=== PATIENT | male | born 1950 | race Caucasian/White ===

== ENCOUNTER 2021-09-14 03:05 | Day surgery (SDC) | payer MEDICARE, SELFPAY ==
[2021-08-31 08:40] VITALS: BMI 36.0
--- NOTE | 2021-09-14 08:26 | WPDANESEPPF ---
Anes - Initial Pre Proc Eval Procedure: Operation Date: 09/14/21 10:00 Proposed Procedures p Screening Colonoscopy - Jovanny Booker MD Date/Time: 09/14/21 08:26 Surgeon: Jovanny Booker MD Pre Op Diagnosis: hx of colon polyps Patient Data Age: 71 Gender: M Height: 1.78 m Weight: 114 kg Allergies Allergy/AdvReac Type Severity Reaction Status Date / Time No Known Allergies Allergy Verified 09/14/21 08:41 Home Medications Medication Instructions Recorded Confirmed Type allopurinol 300 mg PO DAILY 08/31/21 08/31/21 History aspirin [Adult Low Dose Aspirin] 81 mg PO DAILY 08/31/21 08/31/21 History atorvastatin 40 mg PO DAILY 08/31/21 08/31/21 History fenofibrate 40 mg PO DAILY 08/31/21 08/31/21 History furosemide 40 mg PO DAILY 08/31/21 08/31/21 History glucos sul [id number]-ybi-zbukb-C-Mn 1 cap PO DAILY 08/31/21 08/31/21 History [Glucosamine Chondroitin] hydrochlorothiazide 25 mg PO DAILY 08/31/21 08/31/21 History magnesium 500 mg PO DAILY 08/31/21 08/31/21 History metformin 1,000 mg PO BID 08/31/21 08/31/21 History multivit with min-folic acid 1 tablet PO DAILY 08/31/21 08/31/21 History [Adult One Daily Multivitamin] potassium chloride [Klor-Con M10] 10 meq PO DAILY 08/31/21 08/31/21 History Patient hx anesthesia problems: none Family hx anesthesia problems: none Results Review: All pre-operative results and documents have been reviewed as part of the pre-operative evaluation. [facility] Past Medical History Medical History (Updated 09/11/21 @ 12:13 by Duane Taylor DO) Asthma Diabetes type 2, controlled Hyperlipidemia Hypertension Social History Social History Smoking status: Never smoker Alcohol use details: 1-2 drinks monthly Living arrangements: with family Spiritual care concerns: No Anes - Eval Final PreProcedure Day of Procedure 09/14/21 08:26 Patient weight: obese Heart: regular rate and rhythm Lungs: clear to auscultation and normal air movement Airway: Mallampati scale class III Neurological: alert and oriented Last oral intake: >/= 8 hours ASA classification: III Emergent: no Anesthetic plan: proceed Anesthesia type and monitoring: general GIVS and standard monitoring Results Review: All pre-operative results and documents have been reviewed as part of the pre-operative evaluation. Informed Consent: The patient's anesthetic plan and its attendant risks and benefits were discussed with the patient/family/POA. Questions were solicited and answers provided to the satisfaction of the patient/family/POA.
[2021-09-14 08:42] VITALS: BP 170/92; PULSE 83; RESP 18; TEMP 36.8; O2SAT 98; BMI 36.1
--- NOTE | 2021-09-14 08:54 | P.CONGI_ITS ---
Assessment and Plan Assessment and plan (1) History of colon polyps: Code(s): Z86.010 - Personal history of colonic polyps Status: Acute Assessment and Plan: Patient has a prior history of colon polyps. Presents today for screening colonoscopy. Further recommendations will be given after endoscopy. (2) Umbilical hernia: Code(s): K42.9 - Umbilical hernia without obstruction or gangrene Status: Acute Assessment and Plan: Patient with reducible umbilical hernia. May wish to consider surgical intervention. He will discuss with primary care service further GI Consult Note Consult date/time: 09/14/21 08:54 HPI: Vipul Meredith is a 71 year old male Presents for screening colonoscopy. Patient's current weight appetite bowel movements are normal. He denies abdominal pain. He has had no bleeding. Family history is noncontributory. Patient's last colonoscopy was 6 or 7 years ago. Review of Systems Review of Systems: All systems reviewed & are unremarkable except as noted in HPI and below PMFSH Past Medical History Medical History (Updated 09/14/21 @ 08:56 by Jovanny Booker MD) Asthma Diabetes type 2, controlled Hyperlipidemia Hypertension Social History Social History Smoking status: Never smoker Alcohol use details: 1-2 drinks monthly Living arrangements: with family Spiritual care concerns: No Meds Home Medications and Allergies Home Medications Medication Instructions Recorded Confirmed Type allopurinol 300 mg PO DAILY 08/31/21 09/14/21 History aspirin [Adult Low Dose Aspirin] 81 mg PO DAILY 08/31/21 09/14/21 History atorvastatin 40 mg PO DAILY 08/31/21 09/14/21 History fenofibrate 40 mg PO DAILY 08/31/21 09/14/21 History furosemide 40 mg PO DAILY 08/31/21 09/14/21 History glucos sul 6EFx-myf-fdegv-C-Mn 1 cap PO DAILY 08/31/21 09/14/21 History [Glucosamine Chondroitin] hydrochlorothiazide 25 mg PO DAILY 08/31/21 09/14/21 History magnesium 500 mg PO DAILY 08/31/21 09/14/21 History metformin 1,000 mg PO BID 08/31/21 09/14/21 History multivit with min-folic acid 1 tablet PO DAILY 08/31/21 09/14/21 History [Adult One Daily Multivitamin] potassium chloride [Klor-Con M10] 10 meq PO DAILY 08/31/21 09/14/21 History Allergies Allergy/AdvReac Type Severity Reaction Status Date / Time No Known Allergies Allergy Verified 09/14/21 08:41 Vital Signs Vital Signs - 24 hr 09/14/21 08:42 Temperature 98.3 F Pulse Rate 83 Respiratory Rate 18 Blood Pressure 170/92 H Pulse Oximetry 98 Exam Narrative: Physical exam reveals patient be alert. Vital signs stable. HEENT exam is unremarkable. Patient is anicteric. Lungs are clear to auscultation and percussion. Heart is without murmur or extra sounds. Abdomi nal exam is somewhat obese. Bowel sounds are present soft nontender moderate size reducible umbilical hernia is evident. Digital rectal exam is normal.
[2021-09-14 08:56] LABS: Glucose Point of Care 106 mg/dl (65-105)
[2021-09-14] MEDS: LACTATED RINGERS 1,000 ML 150 ML IV CONT (09:04)
[2021-09-14 09:22] VITALS: BP 85/44; PULSE 72; RESP 23; O2SAT 96
[2021-09-14 09:32] VITALS: BP 97/59; PULSE 74; RESP 20; O2SAT 97
[2021-09-14 09:42] VITALS: BP 128/87; PULSE 74; RESP 23; O2SAT 98
== END 2021-09-14 09:51 | disposition home or self-care (01) ==
PROVIDERS: PCP Family Medicine Adolescent Medicine; Visit Provider Internal Medicine Gastroenterology
PROC: 0DJD8ZZ Inspection of Lower Intestinal Tract, Via Natural or Artificial Opening Endoscopic (ICD-10-PCS; CPT 45378; principal; 2021-09-14 10:00)
DX: Z12.11 Encounter for screening for malignant neoplasm of colon (principal); D12.2 Benign neoplasm of ascending colon; K42.9 Umbilical hernia without obstruction or gangrene; J45.909 Unspecified asthma, uncomplicated; E11.9 Type 2 diabetes mellitus without complications; E78.5 Hyperlipidemia, unspecified; I10 Essential (primary) hypertension; Z79.82 Long term (current) use of aspirin; Z79.84 Long term (current) use of oral hypoglycemic drugs; E66.9 Obesity, unspecified; Z68.36 Body mass index [BMI] 36.0-36.9, adult
CPT/HCPCS: 45385; 82948; 88305; J2704; J7120

== ENCOUNTER 2022-09-14 07:42 | Outpatient (CLI) | payer MEDICARE, SELFPAY ==
--- NOTE | 2022-09-14 08:47 | ECG_ITS ---
Measurements Intervals [place] Rate: 96 P: 28 DC: 219 QRS: -71 QRSD: 154 T: 74 QT: 389 QTc: 494 Interpretive Statements SINUS RHYTHM WITH FIRST DEGREE AV BLOCK RIGHT BUNDLE BRANCH BLOCK LEFT ANTERIOR FASCICULAR BLOCK MINIMAL Q WAVES- HIGH LATERAL LEADS BASELINE ARTIFACT- I, II, III, AVR, AVL, V3 ABNORMAL ECG NO PREVIOUS ECG AVAILABLE FOR COMPARISON Electronically Signed On 09-14-2022 10:22:48 COMPUTER TEACHER by Abran Ivan D.O.
[2022-09-14 09:32] LABS: Urine Cotinine NEGATIVE
== END 2022-09-14 07:43 | disposition home or self-care (01) ==
LOC: ANHSURGERY 07:45
PROVIDERS: PCP Family Medicine Adolescent Medicine; Visit Provider Orthopaedic Surgery
DX: M17.11 Unilateral primary osteoarthritis, right knee (principal); Z01.818 Encounter for other preprocedural examination; I44.4 Left anterior fascicular block; I44.0 Atrioventricular block, first degree; I45.10 Unspecified right bundle-branch block
CPT/HCPCS: 80307; 86850; 86900; 86901; 87081; 93005

== ENCOUNTER 2022-09-27 01:08 | Day surgery (SDC) | payer MEDICARE, SELFPAY ==
[2022-09-14 07:51] VITALS: BMI 36.1
[2022-09-14 08:03] VITALS: BP 169/102; PULSE 97; RESP 16; TEMP 37.2; O2SAT 96
--- NOTE | 2022-09-14 08:21 | PC.NURSE ---
Report to the Outpatient Waiting Room, entrance under the green pavilion located off [facility], at time __6:00AM on date __09/27/22 . Planned Procedure Time: __7:30AM . Time changes happen often and if your time is changed the preop area will call you the afternoon before. - You and your visitor will be asked to self-screen and do not enter if you have any COVID symptoms. - Only one visitor is requested with a max of two and NO children visitors are allowed at this time. - The patient visitor may be requested to leave or wait in car when not with patient due to distancing restrictions. - A mask is optional within the hospital. Patients may have clear liquids (water, carbonated beverages, clear teas, apple juice) until 3 hours prior to surgery with a maximum of 20 ounces. - No food from midnight until time of surgery Take the following medications with a SIP of water the morning of surgery: ___NONE Medications to discontinue per physician HOLD ALL VITAMINS/SUPPLEMENTS 3 DAYS PRE-OP Date to take last dose 09/23/22 Please no make-up, nail czech, hairspray, perfume, deodorant, or body powder the day of surgery. No jewelry (including any body piercings) or valuables the day of surgery, leave them at home. Please take a shower or bath the night before, or the morning of, surgery with an antibacterial soap. Wear comfortable, loose fitting clothing. Children are encouraged to wear pajamas. - Jewelry must be removed prior to entering the operating room. Rings and piercings that are not removed may be cut off. - The hospital will not accept responsibility for valuables. - Please leave all valuables, including medications, at home the day of surgery. If you are going home after surgery, a licensed bus driver supervisor must drive you home. - NO public transportation without another adult if you receive anesthesia. - We recommend that an adult stay with you for 24 hours following discharge. - We also recommend that you do not drive, make important decision, drink alcoholic beverages, or take any drugs that were not prescribed by your health care provider for at least 24 hours after your discharge time. Follow any additional instructions given to you from your surgeon. If you or anyone in your household have experienced Covid symptoms in the past week, please notify your surgeon or the nurse liaison at the phone number below for possible testing. Telephone instructions given to __PATIENT & WIFE__and asked if any additional questions and then verbalized understanding. Patient advised to call surgeon office or pre surgery nurse liaison [phone] if any additional questions.
[2022-09-27 07:43] VITALS: BP 163/101; PULSE 91; RESP 18; TEMP 37.1; O2SAT 98
[2022-09-27] MEDS: LACTATED RINGERS 1,000 ML 30 ML IV CONT (07:50)
--- NOTE | 2022-09-27 08:09 | WPDANESEPPF ---
Anes - Initial Pre Proc Eval Procedure: Operation Date: 09/27/22 10:30 Proposed Procedures p Right Total Knee Arthroplasty - Jerson Cartagena MD Date/Time: 09/27/22 08:09 Surgeon: Jerson Cartagena MD Pre Op Diagnosis: OA right knee Patient Data Age: 72 Gender: M Height: 1.8 m Weight: 117.6 kg Last Vital Signs Temp 37.1 C 09/27/22 07:43 Pulse 91 09/27/22 07:43 Resp 18 09/27/22 07:43 BP 163/101 H 09/27/22 07:43 Pulse Ox 98 09/27/22 07:43 O2 Del Method Room Air 09/27/22 07:43 Allergies Allergy/AdvReac Type Severity Reaction Status Date / Time rye flower Allergy Intermediate Swelling Uncoded 09/27/22 07:35 Home Medications Medication Instructions Recorded Confirmed Type aspirin 81 mg tablet 81 mg PO DAILY 08/31/21 09/27/22 History glucosamine sulf dipot 1 cap PO DAILY 08/31/21 09/27/22 History chlr,msm,chond 550 mg-C 30 mg-kasey 1 mg capsule (Glucosamine Chondroitin) magnesium 500 mg tablet 500 mg PO DAILY 08/31/21 09/27/22 History multivitamin with minerals-folic 1 tablet PO DAILY 08/31/21 09/27/22 History acid 0.4 mg tablet metformin 500 mg tablet 1,000 mg PO BID #120 tabs 02/03/22 09/27/22 Rx atorvastatin 40 mg tablet 40 mg PO DAILY #90 tabs 05/31/22 09/27/22 Rx allopurinol 300 mg tablet 300 mg PO DAILY #90 tabs 06/18/22 09/27/22 Rx potassium chloride 10 mEq 10 meq PO DAILY #90 tabs 06/28/22 09/27/22 Rx tablet,extended release (Klor-Con) acetaminophen 500 mg capsule 1,500 mg PO Q6H PRN Pain 09/14/22 09/27/22 History furosemide 40 mg tablet 40 mg PO QAM 09/14/22 09/27/22 History cakgejvmyxc-hbzcnitjm-mzt C-Mn 500 1 cap PO DAILY 09/14/22 09/27/22 History mg-400 mg capsule hydrochlorothiazide 25 mg tablet 25 mg PO QAM 09/14/22 09/27/22 History irbesartan 150 mg tablet 150 mg PO HS 09/14/22 09/27/22 History lactobacillus combination no.4 3 3,000 mmu cells PO DAILY 09/14/22 09/27/22 History billion cell capsule (Probiotic) omega-3 fatty acids 2,500 mg PO DAILY 09/14/22 09/27/22 History vitamin B complex 1 tablet PO DAILY 09/14/22 09/27/22 History mupirocin 2 % topical ointment 1 applic topical BID #22 grams 09/16/22 09/22/22 Rx rivaroxaban 10 mg tablet (Xarelto) 10 mg PO DAILY PE prophylaxis s/p 09/16/22 09/22/22 Rx surgery 14 days #14 tabs ECG: Date of Service: 09/14/22 Procedure(s): CA 12 lead EKG Accession Number(s): [id number] cc: ~ ? Measurements Intervals? [place]? Rate: ? 96 ? P:? 28 MN: ? 219? QRS:? -71 QRSD: ? 154? T:? 74 QT: ? 389? QTc:? 494? Interpretive Statements SINUS RHYTHM WITH FIRST DEGREE AV BLOCK RIGHT BUNDLE BRANCH BLOCK LEFT ANTERIOR FASCICULAR BLOCK MINIMAL Q WAVES- HIGH LATERAL LEADS BASELINE ARTIFACT- I, II, III, AVR, AVL, V3 ABNORMAL ECG NO PREVIOUS ECG AVAILABLE FOR COMPARISON Electronically Signed On 09-14-2022 10:22:48 STRAINER CLEANER by Abran Ivan D.O. Other studies: echo 09/27: ef 59%, concentric lvh, grade 1 diastolic dysfunction. Moderate aortic stenosis, valve area 1.37 cm2 Patient hx anesthesia problems: none Family hx anesthesia problems: none Results Review: All pre-operative results and documents have been reviewed as part of the pre-operative evaluation. [facility] Past Medical History Medical History (Updated 09/27/22 @ 08:12 by Rigoberto Daley MD) Aortic stenosis (09/2022) Moderate aortic stenosis, valve area 1.37 cm2 Asthma Bilateral primary osteoarthritis of knee CVA (cerebral vascular accident) Diabetes type 2, controlled History of colon polyps History of retinal vein occlusion Hyperlipidemia Hypertension Obesity Osteoarthritis of knees, bilateral Family History Family History (Reviewed 09/16/22 @ 09:11 by Jerson Cartagena,
[2022-09-27] MEDS: ACETAMINOPHEN 500 MG TABLET 1000 MG PO (08:38)
--- NOTE | 2022-09-27 08:58 | WPDANESPNB ---
Anes - Peripheral Nerve Block Date/Time: 09/27/22 08:58 I have discussed with the patient/family/POA the placement of a peripheral nerve block for post-operative pain management, including associated risks, benefits, complications, and side effects. Alternative methods of post-operative analgesia were detailed. Questions were solicited and answers provided to the satisfaction of the patient/family/POA. Time-Out: A pre-procedural Time-Out was completed immediately before starting the procedure and confirmed: Patient Identification, Site, Procedure, Patient Position and the Availability of Requisite Equipment. Clinical Indications: Acute post-operative pain management requested by the operative surgeon. Nerve Block Insertion Note Needle: 22 gauge, stimulating, insulated echogenic needle.
[2022-09-27 09:30] VITALS: BP 182/111; PULSE 84; RESP 18; O2SAT 98
--- NOTE | 2022-09-27 09:33 | WPDHPUPDATE1 ---
History and Physical Update Update Date/Time: 09/27/22 09:33 The patient and his misunderstood medication regimen. He has not taken any of his medications since last Tuesday and is now fluid overloaded with lower extremity edema and a markedly elevated blood pressure. After discussing with Anesthesia, we think it prudent to wait to get this situation back under control so he is going to be rescheduled. This was explained to him and his .
== END 2022-09-27 09:58 | disposition home or self-care (01) ==
PROVIDERS: PCP Family Medicine Adolescent Medicine; Visit Provider Orthopaedic Surgery
PROC: (CPT 27447; principal; 2022-09-27 10:30)
DX: M17.11 Unilateral primary osteoarthritis, right knee (principal); E87.70 Fluid overload, unspecified; I10 Essential (primary) hypertension; Z53.09 Procedure and treatment not carried out because of other contraindication
CPT/HCPCS: 80307; 86850; 86900; 86901; 87081; 93005; 99212; A9270; G0463; J0171; J2270; J2795; J3370; J7120

== ENCOUNTER 2022-10-01 08:21 | Outpatient (CLI) | payer MEDICARE, SELFPAY ==
[2022-10-01 08:54] LABS: Albumin Level 4.5 g/dL (3.5-5.1)
[2022-10-01 08:57] LABS: Anion Gap 5 mmol/L (8-16); Blood Urea Nitrogen 19 mg/dL (9-20); Calcium 9.7 mg/dL (8.4-10.2); Carbon Dioxide 32 mmol/L (22-30); Chloride 97 mmol/L (98-107); Estimated Glomerular Filt Rate > 60; Glucose 102 mg/dL (65-110); Potassium 4.7 mmol/L (3.4-5.0); Sodium 134 mmol/L (137-145)
== END 2022-10-01 08:22 | disposition home or self-care (01) ==
PROVIDERS: Anesthesiology; PCP Family Medicine Adolescent Medicine; Visit Provider Orthopaedic Surgery
DX: M17.11 Unilateral primary osteoarthritis, right knee (principal); E11.9 Type 2 diabetes mellitus without complications; Z01.818 Encounter for other preprocedural examination
CPT/HCPCS: 36415; 80048; 82040; 86850; 86900; 86901

== ENCOUNTER 2022-10-05 00:42 | Day surgery (SDC) | payer MEDICARE, SELFPAY ==
[2022-09-30 09:21] VITALS: BMI 36.6
--- NOTE | 2022-09-30 09:41 | PC.NURSE ---
Report to the Outpatient Waiting Room, entrance under the green pavilion located off [facility], at time __6:00AM on date ___10/05/22____. Planned Procedure Time: __9:00AM . PATIENT COMING 1 HOUR EARLIER THAN USUAL FOR VANCOMYCIN ADMINISTRATION. Time changes happen often and if your time is changed the preop area will call you the afternoon before. - You and your visitor will be asked to self-screen and do not enter if you have any COVID symptoms. - Only one visitor is requested with a max of two and NO children visitors are allowed at this time. - The patient visitor may be requested to leave or wait in car when not with patient due to distancing restrictions. - A mask is optional within the hospital at this time. Patients may have clear liquids (water, carbonated beverages, clear teas, apple juice) until 3 hours prior to surgery with a maximum of 20 ounces. - No food from midnight until time of surgery Take the following medications with a SIP of water the morning of surgery: __NONE DO NOT STOP ANY OF YOUR OTHER PRESCRIPTION MEDICATIONS PRIOR TO SURGERY ?EXCEPT THE FOLLOWING Medications to discontinue per physician ___HOLD ASPIRIN & FISH OIL STARTING 09/29/[address] DEGROOT/MATILDA (PER PATIENT), HOLD ALL OTHER VITAMINS/SUPPLEMENTS 3 DAYS PRE-OP PER ANESTHESIA(LAST DOSE 10/01/22) . Please no make-up, nail slovenian, hairspray, perfume, deodorant, or body powder the day of surgery. No jewelry (including any body piercings) or valuables the day of surgery, leave them at home. Please take a shower or bath the night before, or the morning of, surgery with an antibacterial soap. Wear comfortable, loose fitting clothing. Children are encouraged to wear pajamas. - Jewelry must be removed prior to entering the operating room. Rings and piercings that are not removed may be cut off. - The hospital will not accept responsibility for valuables. - Please leave all valuables, including medications, at home the day of surgery. If you are going home after surgery, a licensed driver supervisor must drive you home. - NO public transportation without another adult if you receive anesthesia. - We recommend that an adult stay with you for 24 hours following discharge. - We also recommend that you do not drive, make important decision, drink alcoholic beverages, or take any drugs that were not prescribed by your health care provider for at least 24 hours after your discharge time. Follow any additional instructions given to you from your surgeon. If you or anyone in your household have experienced Covid symptoms in the past week, please notify your surgeon or the nurse liaison at the phone number below for possible testing. Telephone instructions given to __PATIENT__and asked if any additional questions and then verbalized understanding. Patient advised to call surgeon office or pre surgery nurse liaison [phone] if any additional questions.
[2022-10-05] VITALS (17 sets, daily range): BP systolic 110–157; BP diastolic 66–87; PULSE 77–103; RESP 14–22; TEMP 36.4–36.8; O2SAT 92–100
--- NOTE | ~2022-10-05 | XR_ITS ---
EXAMINATION: XR knee RT 2V DATE: 10/05/2022 11:53 INDICATION: Right knee arthroplasty. Postop. TECHNIQUE: 2 views of right knee were obtained. COMPARISON: None. FINDINGS: There is a total right knee arthroplasty with resurfacing in near-anatomic alignment. No fr acture. There is a knee joint effusion. There is gas in the knee joint and soft tissues, consistent w ith recent surgery. Calcifications posterior to the knee may be loose bodies in a Corbin's cyst. IMPRESSION: 1. Total right knee arthroplasty in near-anatomic alignment. Reviewed, dictated and finalized at location A. P COLLECTOR
[2022-10-05] MEDS: LACTATED RINGERS 1,000 ML 30 ML IV CONT ×2 (06:30→11:35)
[2022-10-05] MEDS: ACETAMINOPHEN 500 MG TABLET 1000 MG PO (06:30)
[2022-10-05 06:54] LABS: Glucose Point of Care 112 mg/dl (65-105)
[2022-10-05] MEDS: TRANEXAMIC ACID 1,000MG/ISO100 1,000 MG/100 ML BAG 200 MG IVPB (07:00)
--- NOTE | 2022-10-05 07:20 | WPDHPUPDATE1 ---
History and Physical Update Update Date/Time: 10/05/22 07:20 History and Physical has been reviewed, including an updated exam of the patient. There are NO changes in the patient's condition. Risks, benefits, and alternatives have been discussed and questions answered. Patient agrees to proceed with procedure.
--- NOTE | 2022-10-05 08:18 | WPDANESEPPF ---
Anes - Initial Pre Proc Eval Procedure: Operation Date: 10/05/22 09:00 Proposed Procedures p Right Total Knee Arthroplasty - Jerson Cartagena MD Date/Time: 10/05/22 08:18 Surgeon: Jerson Cartagena MD Pre Op Diagnosis: oa right knee Patient Data Age: 72 Gender: M Height: 1.78 m Weight: 116 kg Allergies Allergy/AdvReac Type Severity Reaction Status Date / Time RYE FLOUR Allergy Wheezing Uncoded 10/05/22 07:39 Home Medications Medication Instructions Recorded Confirmed Type aspirin 81 mg tablet 81 mg PO DAILY 08/31/21 10/05/22 History glucosamine sulf dipot 1 cap PO DAILY 08/31/21 10/05/22 History chlr,msm,chond 550 mg-C 30 mg-kasey 1 mg capsule (Glucosamine Chondroitin) magnesium 500 mg tablet 500 mg PO DAILY 08/31/21 10/05/22 History multivitamin with minerals-folic 1 tablet PO DAILY 08/31/21 10/05/22 History acid 0.4 mg tablet metformin 500 mg tablet 1,000 mg PO BID #120 tabs 02/03/22 10/05/22 Rx atorvastatin 40 mg tablet 40 mg PO DAILY #90 tabs 05/31/22 10/05/22 Rx allopurinol 300 mg tablet 300 mg PO DAILY #90 tabs 06/18/22 10/05/22 Rx potassium chloride 10 mEq 10 meq PO DAILY #90 tabs 06/28/22 10/05/22 Rx tablet,extended release (Klor-Con) furosemide 40 mg tablet 40 mg PO QAM 09/14/22 10/05/22 History hydrochlorothiazide 25 mg tablet 25 mg PO QAM 09/14/22 10/05/22 History irbesartan 150 mg tablet 150 mg PO HS 09/14/22 10/05/22 History lactobacillus combination no.4 3 3,000 mmu cells PO DAILY 09/14/22 10/05/22 History billion cell capsule (Probiotic) omega-3 fatty acids 2,500 mg PO DAILY 09/14/22 10/05/22 History vitamin B complex 1 tablet PO DAILY 09/14/22 10/05/22 History acetaminophen 650 mg 650 mg PO Q8H PRN Pain 09/30/22 10/05/22 History tablet,extended release mupirocin 2 % topical ointment 1 ea topical DAILY 09/30/22 10/05/22 History Laboratory Tests 10/05/22 06:47 POC Capillary Glucose 112 mg/dl H mg/dl (65-105) Patient hx anesthesia problems: none Family hx anesthesia problems: none Results Review: All pre-operative results and documents have been reviewed as part of the pre-operative evaluation. [facility] Past Medical History Medical History (Updated 09/29/22 @ 13:40 by Santana Benitez MD) Aortic stenosis (09/2022) Moderate aortic stenosis, valve area 1.37 cm2 Asthma CVA (cerebral vascular accident) Diabetes type 2, controlled History of colon polyps History of retinal vein occlusion Hyperlipidemia Hypertension Obesity Osteoarthritis of knees, bilateral Family History Family History Father Acute myocardial infarction Mother Acute myocardial infarction Sibling Cerebrovascular accident CAD (coronary artery disease) Social History Social History Smoking status: Never smoker Alcohol intake: current Alcohol use details: 1-2 drinks monthly Substance use: never Substance use type: does not use Living arrangements: with family Additional living arrangements comments: Occupation/Education: occupation Additional occupation/education comments: [employer] Spiritual care concerns: No Anes - Eval Final PreProcedure Day of Procedure 10/05/22 08:18 Patient weight: obese Heart: regular rate and rhythm Lungs: clear to auscultation Airway: Mallampati scale class III Neurological: alert and oriented Last oral intake: >/= 8 hours ASA classification: III Emergent: no Anesthetic plan: proceed Anesthesia type and monitoring: general LMA and standard monitoring Results Review: All pre-operative results and documents have been reviewed as part of the pre-operative evaluation. Informed Consent: The patient's anesthetic plan and its attendant risks and benefits were discussed with the patient/family/POA. Questions were solicited and answers provided to the satisfaction of the patient/family/POA.
--- NOTE | 2022-10-05 08:49 | WPDANESPNB ---
Anes - Peripheral Nerve Block Date/Time: 10/05/22 08:49 I have discussed with the patient/family/POA the placement of a peripheral nerve block for post-operative pain management, including associated risks, benefits, complications, and side effects. Alternative methods of post-operative analgesia were detailed. Questions were solicited and answers provided to the satisfaction of the patient/family/POA. Time-Out: A pre-procedural Time-Out was completed immediately before starting the procedure and confirmed: Patient Identification, Site, Procedure, Patient Position and the Availability of Requisite Equipment. Clinical Indications: Acute post-operative pain management requested by the operative surgeon. Nerve Block Insertion Note Anes-nerve block: adductor canal right Patient position: supine Skin prep: chlorhexidine Needle: 22 gauge, stimulating, insulated echogenic needle. Needle length: 80 mm Technique: ultrasound Injectate: bupivacaine 0.5% with epi 5 mcg/ml (30cc - no epi) Observations: tolerated well Complications: none Procedure start time:: 843 Procedure end time:: 846
[2022-10-05] MEDS: ceFAZolin 2 GM/D5W 50 ML 2 GM/50 ML BAG IVPB ×2 (09:06→21:08)
--- NOTE | 2022-10-05 10:23 | SUR.OPER ---
cement mixed 10:23
[2022-10-05] MEDS: GENTAMICIN BONE CEMENT REFOBACIN 1 EACH TOPICAL (10:26)
[2022-10-05] MEDS: ceFAZolin SODIUM 1 GM VIAL IV PUSH (10:34)
--- NOTE | 2022-10-05 11:28 | W.PM.PROC2 ---
Procedure Note - Detailed Date of Procedure 10/05/22 Pre-op Diagnosis oa right knee Post-op Diagnosis Same Procedure Performed Right total knee replacement Surgeon Jerson Cartagena MD Meal Grinder Tender Leann Tao Anesthesia General and Regional Description of Procedure The patient was identified and proper site identified. In the preop holding area the anesthesia team performed a right-sided sub sartorial block after which the patient was taken to the operating room and transferred to the OR table positioning supine taking care to pad the torso and extremities. After general anesthetic induction and intubation a nonsterile tourniquet was placed high on the right thigh. The right lower extremity was prepped and draped in the usual sterile fashion. The extremity was exsanguinated and with the knee flexed tourniquet was inflated to 300 mmHg remaining up for approximately 56 minutes. An anterior midline incision was made and a modified medial parapatellar approach was used. Infra and suprapatellar fat pads were excised. Patella was resected leaving 16 mm thickness and prepared for the size 31 round three peg component. Using the intramedullary guide the distal femur was cut in the proper orientation for the size 67.5 femoral component. Using the extramedullary guide the tibia was cut perpendicular to the long axis protecting collateral ligaments and popliteal structures. It was sized to a 71. Flexion and extension gaps were balanced. Trial reduction was undertaken and the weight-bearing line was noted to passed through the center of the joint. Proximal tibia was drilled and punched in the proper orientation for the real component. Trial components were removed. The bone surfaces were washed with pulsatile lavage and dried. The real components were cemented simultaneously. The knee was held in extension and the patella held clamped until the cement had cured. Excess cement was removed from the joint. After trialing it was determined that the 14 mm insert gave full range of motion from 0-120 degrees of flexion and the patella tracked in the femoral groove with no lift-off. After final lavage the joint the real 14 insert was placed and secured with a locking bar. A Betadine and saline wash was placed into the wound and allowed to sit for approximately 3 minutes and then evacuated. Periarticular tissues were infiltrated with 60 cc of the arthroplasty solution. Surgicel powder was applied into the wound during the closure. The extensor mechanism was repaired with #2 Vicryl suture and 0 looped PDS suture. Subcu was reapproximated with 3-0 Monocryl and 3-0 Quill with tissue adhesive for the skin. A sterile dressing was applied. He tolerated the procedure well, was awakened and extubated, transferred to the bed and was taken to recovery area in stable condition. There were no known intraoperative complications. Perioperative antibiotics were administered. Estimated Blood Loss 300 Tourniquet Time 56 Drains No Packing No Pathology None sent Complications No immediate complications Condition Stable Disposition PACU [facility] Billing Surgery - Charge Forward: Surgery Billing ([id number])
[2022-10-05 11:50] LABS: Glucose Point of Care 144 mg/dl (65-105)
[2022-10-05] MEDS: fentaNYL CITRATE INJ (*CRX) 100 MCG/2 ML VIAL 25 MCG IV PUSH ×6 (12:39→14:34)
--- NOTE | 2022-10-05 13:31 | SUR.PHASEI ---
PT ARRIVED TO PREOP ROOM ON 2 L O2, 3/10 PAIN, AND GIVEN A MENU.
[2022-10-05] MEDS: oxyCODONE HCL (*CRX) 5 MG TAB IR PO (15:34)
[2022-10-05 17:24] LABS: Glucose Point of Care 204 mg/dl (65-105)
--- NOTE | 2022-10-05 17:55 | ADMGEN ---
This patient, Vipul Meredith, was admitted to Medical Room 347-. Patient/family oriented to hospital policies and general routines including ID bracelet, bed and alarms, visiting hours, pain management, procedures, bathroom and other care routines, personal items, smoking policy, room service/diet, and visiting hours. Information on how to activate the Rapid Response Team has been discussed. Patient/Family are encouraged to report perceived risks to care and to ask questions if they do not understand what they are told or what they should do.
[2022-10-05] MEDS: oxyCODONE/ACETAMINOPHEN (*CRX) 5-325 MG TABLET 1 TABLET PO ×2 (19:53→23:57)
[2022-10-05] MEDS: SENNA/DOCUSATE SODIUM TABLET 2 TAB PO (19:53)
[2022-10-05] MEDS: IRBESARTAN 150 MG TABLET PO (19:54)
[2022-10-05] MEDS: FAMOTIDINE 20 MG TABLET PO (19:54)
[2022-10-05 21:06] LABS: Glucose Point of Care 153 mg/dl (65-105)
[2022-10-06 01:15] VITALS: BP 117/66; PULSE 96; RESP 18; TEMP 36.6; O2SAT 96
[2022-10-06] MEDS: ceFAZolin 2 GM/D5W 50 ML 2 GM/50 ML BAG IVPB ×2 (04:00→13:14)
[2022-10-06] MEDS: oxyCODONE/ACETAMINOPHEN (*CRX) 5-325 MG TABLET 1 TABLET PO ×3 (04:00→13:13)
--- NOTE | 2022-10-06 04:52 | PM.IMCN ---
Assessment and Plan Assessment and plan (1) Status post total right knee replacement: Code(s): Z96.651 - Presence of right artificial knee joint Status: Acute Assessment and Plan: - post op care per ortho - dvt prophylaxis per ortho - xarelto (2) CVA (cerebral vascular accident): Code(s): I63.9 - Cerebral infarction, unspecified Status: Acute Assessment and Plan: - chronic visual changes to right eye (3) Type 2 diabetes mellitus without complications: Code(s): E11.9 - Type 2 diabetes mellitus without complications Status: Acute Assessment and Plan: accucheck ac/hs with ss insulin and hypoglycemic protocol (4) Mixed hyperlipidemia: Code(s): E78.2 - Mixed hyperlipidemia Status: Acute Assessment and Plan: -on atorvastatin (5) Hypertension: Code(s): I10 - Essential (primary) hypertension Status: Acute Assessment and Plan: continue with lasix - continue with htcz and monitor bmp - continue with avapro (6) Umbilical hernia: Code(s): K42.9 - Umbilical hernia without obstruction or gangrene Status: Acute Assessment and Plan: soft and reducable Plan thank for the consult HPI Data of Consult Consult date: 10/05/22 Requesting Physician: Jerson Cartagena MD Primary Care Provider: Santana Benitez MD Consult Narrative Narrative: Vipul Meredith is a 72 year old male who is a fairly healthy adult who underwent a right total knee arthroplasty after attempting conservative measures. she operative report. he has a hx of htn and dm. the hospitalist group was asked to consult for medical mangaement on 10/05/22 Review of Systems Review of Systems: see hpi All systems reviewed & are unremarkable except as noted in HPI and below Constitutional: Constitutional: Reports as per HPI and Reports no additional constitutional complaints Eyes: Eyes: Reports as per HPI and Reports no additional eye complaints ENT: Reports system reviewed and no additional complaints, except as documented and Reports Normal hearing present Cardiovascular: Cardiovascular: Reports no additional cardiovascular complaints Respiratory: Respiratory: Reports no additional respiratory complaints and Reports no additional respiratory complaints Gastrointestinal: Gastrointestinal: Reports as per HPI and Reports no additional gastrointestinal complaints Musculoskeletal: Musculoskeletal: Reports no additional musculoskeletal complaints Integumentary/Breasts: Skin/Breast: Reports system reviewed and no additional complaints, except as docu and Reports as per HPI Neurologic: Reports system reviewed and no additional complaints, except as documented, Reports as per HPI and Reports Normal hearing present Psychiatric: Psychiatric: Reports no additional psychiatric complaints and Reports as per HPI Endocrine: Endocrine: Reports no additional endocrine complaints Hematologic/Lymphatic: Hematologic/Lymphatic: Reports no additional hematologic/lymphatic complaints Allergic/Immunologic: Allergic/Immunologic: Reports no additional allergic/immunologic complaints [facility] Past Medical History Medical History Aortic stenosis (09/2022) Moderate aortic stenosis, valve area 1.37 cm2 Asthma CVA (cerebral vascular accident) Diabetes type 2, controlled History of colon polyps History of retinal vein occlusion Hyperlipidemia Hypertension Obesity Osteoarthritis of knees, bilateral Surgical History Surgical History (Updated 10/06/22 @ 04:57 by Ashley Gonsalves NP) H/O colonoscopy with polypectomy H/O wisdom tooth extraction Status post total right knee replacement Family History Family History Father Acute myocardial infarction Mother Acute myocardial infarction Sibling Cerebrovascular accident CAD (coronary artery d
[2022-10-06 05:27] VITALS: BP 144/77; PULSE 87; RESP 18; TEMP 36.8; O2SAT 96
[2022-10-06 05:36] LABS: Basophils Absolute Auto 0.1 K/mm3 (0.0-0.1); Basophils Percent Auto 0.5 % (0.2-1.2); Eosinophils Absolute Auto 0.1 K/mm3 (0-0.3); Eosinophils Percent Auto 0.5 % (0-4.4); Hematocrit 40.1 % (42.0-52.0); Hemoglobin 13.2 g/dL (14.0-18.0); Immature Granulocyte Absolute 0.05 K/mm3 (0.00-0.031); Immature Granulocyte Percent A 0.4 % (0-0.5); Lymphocytes Absolute Auto 2.37 K/mm3 (0.9-3.2); Lymphocytes Percent Auto 17.6 % (18.3-44.2); Mean Corpuscular HGB Conc 32.9 g/dl (32-36); Mean Corpuscular Hemoglobin 30.7 pg (26-34); Mean Corpuscular Volume 93.3 fl (80-100); Monocytes Absolute Auto 1.5 K/mm3 (0.1-0.6); Monocytes Percent Auto 11.2 % (2.6-8.5); Neutrophils Absolute Auto 9.4 K/mm3 (1.3-6.7); Neutrophils Percent Auto 69.8 % (45.5-73.1); Platelet Count Result 196 k/mm3 (150-375); Red Cell Distribution Width 12.8 % (11.5-14.5); White Blood Count 13.5 K/mm3 (4.5-10.0)
[2022-10-06 05:48] LABS: Anion Gap 5 mmol/L (8-16); Blood Urea Nitrogen 18 mg/dL (9-20); Calcium 8.9 mg/dL (8.4-10.2); Carbon Dioxide 31 mmol/L (22-30); Chloride 97 mmol/L (98-107); Estimated CRCL calculation 91 ml/min; Estimated Glomerular Filt Rate > 60; Glucose 123 mg/dL (65-110); Magnesium 1.9 mg/dL (1.6-2.3); Sodium 133 mmol/L (137-145)
--- NOTE | 2022-10-06 08:42 | PM.DS ---
DS: Admitting Diagnosis Discharge Date 10/06/2022 Admitting Diagnosis Right knee osteoarthritis DS: Discharge Diagnosis Discharge Diagnosis (1) Status post total right knee replacement: Code(s): Z96.651 - Presence of right artificial knee joint Status: Acute Plan 72-year-old male postop day 1 after right total knee replacement with Dr. Cartagena. Overall doing very well this morning. Uneventful overnight stay. He is doing well with the current pain management regimen. He will be seen by therapy this morning prior to discharge. Postoperative wound care and medications were discussed with him. Plan follow-up in 2 weeks in the office for wound and range of motion check. He will call our office with any further questions or concerns prior to that scheduled follow-up. DS: Summary Hospital Course Reason for hospitalization: Observation after outpatient procedure Hospital Course: 72-year-old male admitted for observation after right total knee replacement. No immediate surgical complications. Hospitalist was consulted due to chronic conditions. Appreciate their input. Relatively uneventful overnight stay. Pain is fairly well controlled with current pain medications. Planned to see therapy this morning prior to discharge. He has an office visit scheduled in 2 weeks for recheck. Status at Discharge Functional status at discharge: uses cane/walker Overall status at discharge: patient is progressing back to baseline Time Spent with Patient Time attestation: Total time spent providing and/or coordinating discharge services: Time spent: Less than 30 minutes Exam Const: General: comfortable and no acute distress Eyes: General: appearance normal, both eyes and all related structures Resp: Effort & Inspection: normal respiratory effort GI: Inspection: non-distended Skin: General skin exam: normal color Neuro: Sensory Exam: normal sensation Extrem: Other: Exam of the right knee shows a clean and dry surgical dressing. Swelling at the knee and distal leg consistent with the recent total knee replacement. No appreciable ecchymosis or erythema. Neurovascular status right lower extremity is intact. Psych: Mental Status: mental status grossly normal Radiology Reports: Comments: EXAMINATION: XR knee RT 2V DATE: 10/05/2022 11:53 INDICATION: Right knee arthroplasty. Postop. TECHNIQUE: 2 views of right knee were obtained. COMPARISON: None. FINDINGS: There is a total right knee arthroplasty with resurfacing in near-anatomic alignment. No fracture. There is a knee joint effusion. There is gas in the knee joint and soft tissues, consistent with recent surgery. Calcifications posterior to the knee may be loose bodies in a Corbin's cyst. IMPRESSION: 1. Total right knee arthroplasty in near-anatomic alignment. Knee X-Ray 10/05/22 Orthopedics Result Report 07/19/22 DS: Data Data Completed and Pending Labs on day of discharge: Labs from last 24 hours 10/06/22 10/06/22 10/05/22 05:28 05:28 21:02 WBC 13.5 H RBC 4.30 L Hgb 13.2 L Hct 40.1 L MCV 93.3 MCH 30.7 MCHC 32.9 RDW 12.8 Plt Count 196 MPV 11.0 H Immature Gran % (Auto) 0.4 Neut % (Auto) 69.8 Lymph % (Auto) 17.6 L [place] % (Auto) 11.2 H Eos % (Auto) 0.5 Baso % (Auto) 0.5 Lymph # (Auto) 2.37 [place] # (Auto) 1.5 H Eos # (Auto) 0.1 Baso # (Auto) 0.1 Abs Immat Gran (auto) 0.05 H Absolute Neuts (auto) 9.4 H Absolute Nucleated RBC 0.0 Nucleated RBC % 0.0 Sodium 133 L Potassium 4.0 Chloride 97 L Carbon Dioxide 31 H Anion Gap 5 L BUN 18 Creatinine 0.80 Estim Creat Clear Calc 91 Estimated GFR > 60 Glucose 123 H POC Capillary Glucose 153 H Calcium 8.9 Magnesium 1.9 10/05/22 10/05/22 17:17 11:47 WBC RBC Hgb Hct MCV MCH MCHC RDW Plt Count MPV Immature Gran % (Auto) Neut % (Auto) L
[2022-10-06] MEDS: VITAMIN B COMPLEX CAPSULE 1 CAP PO (09:11)
[2022-10-06] MEDS: FUROSEMIDE 40 MG TABLET PO (09:11)
[2022-10-06] MEDS: allopurinoL 300 MG TABLET PO (09:11)
[2022-10-06] MEDS: ATORVASTATIN 40 MG TABLET PO (09:11)
[2022-10-06] MEDS: hydroCHLOROthiazide 25 MG TABLET PO (09:11)
[2022-10-06] MEDS: FAMOTIDINE 20 MG TABLET PO (09:11)
[2022-10-06] MEDS: THERAPEUTIC MULTIVITAMINS/MINERALS TAB (*BKC) 1 TABLET PO (09:11)
[2022-10-06] MEDS: polyethylene glycoL 3350 17 GM POWD.PACK PO (09:11)
[2022-10-06] MEDS: SENNA/DOCUSATE SODIUM TABLET 2 TAB PO (09:11)
[2022-10-06] MEDS: POTASSIUM CHLORIDE 10 MEQ TABLET.ER PO (09:11)
[2022-10-06] MEDS: RIVAROXABAN 10 MG TABLET PO (09:11)
--- NOTE | 2022-10-06 11:09 | PC.NURSE ---
Onaro was down. per pharmacy, meds can be seen on NOV just not scanned in. all meds and dosage verified with pt. pt gave all correct identifiers. morning meds given at 0911. hospitalist notified of this
[2022-10-06 11:31] VITALS: BP 126/77; PULSE 114; RESP 18; TEMP 36.7; O2SAT 93
[2022-10-06 12:24] LABS: Glucose Point of Care 144 mg/dl (65-105)
--- NOTE | 2022-10-06 14:30 | PM.IMPN ---
Progress Note: A&P Assessment and Plan (1) Status post total right knee replacement: Code(s): Z96.651 - Presence of right artificial knee joint Status: Acute Assessment and Plan: patient underwent right total knee replacement on 10/05/2022. Managed per Orthopedic surgery. He was started on Xarelto for DVT prophylaxis for 2 per Orthopedic surgery. Discussed anticoagulation precautions. (2) Type 2 diabetes mellitus without complications: Code(s): E11.9 - Type 2 diabetes mellitus without complications Status: Chronic Assessment and Plan: Blood sugars reasonably controlled during admission. Continue home metformin (3) Mixed hyperlipidemia: Code(s): E78.2 - Mixed hyperlipidemia Status: Chronic Assessment and Plan: continue atorvastatin (4) Hypertension: Code(s): I10 - Essential (primary) hypertension Status: Acute Assessment and Plan: blood pressures stable. Continue home antihypertensives Subjective Date/time seen: 10/06/22 14:30 Interval history: date of service: 10/06/2022 Vipul Meredith is a 72-year-old male with a history of type 2 diabetes mellitus, CVA, asthma, aortic stenosis, hypertension, and hyperlipidemia who is seen in follow-up for medical management following right total knee replacement. He is doing very well. He is participating in therapy. He intends to return home today and feels confident in his ability to manage getting around his home. He has 1 step to enter his home. He has had any postop issues. He denies nausea vomiting shortness of breath, cough, or chest pain. He is tolerating his diet. He has been able to void without difficulty. He denies dysuria or hematuria. He had a bowel movement yesterday. he has no other concerns. discussed maintaining a bowel regimen following discharge to help with regular bowel movements. Discussed anticoagulation precautions at length with both patient and his . Review of Systems Review of Systems: All systems reviewed & are unremarkable except as noted in HPI and below Exam Narrative: General: Obese, well-appearing 72-year-old male, sitting up in a chair, comfortable, NARD Neuro: awake, alert and oriented x4, speech clear, no focal neuro deficits noted HEENMT: normocephalic, atraumatic, EOMI, sclerae anicteric Respiratory: clear to auscultation bilaterally, nonlabored breathing Cardio: regular rate, regular rhythm with S1-S2 Abdomen: nondistended, normoactive bowel sounds, soft, nontender to palpation Extremities: knee exam deferred Skin: no rashes or lesions, warm and dry Psych: appropriate mood and affect, judgment and insight intact Objective Data Vital Signs Vital Signs: Vital Signs - 24 hr 10/05/22 15:00 10/05/22 15:35 10/05/22 18:01 Temperature 98.2 F Pulse Rate 83 101 H 103 H Respiratory Rate 14 16 18 Blood Pressure 122/77 110/66 131/70 Pulse Oximetry 100 92 Oxygen Delivery Nasal Cannula Room Air Oxygen Flow Rate 2 10/05/22 20:00 10/05/22 20:59 10/06/22 01:15 Temperature 97.9 F 97.8 F Pulse Rate 103 H 93 96 Respiratory Rate 18 20 18 Blood Pressure 115/70 117/66 Pulse Oximetry 92 92 96 Oxygen Delivery Room Air Oxygen Flow Rate 10/06/22 05:27 10/06/22 08:30 Temperature 98.2 F Pulse Rate 87 Respiratory Rate 18 Blood Pressure 144/77 H Pulse Oximetry 96 Oxygen Delivery Room Air Oxygen Flow Rate Intake/Output Intake/Output: Intake & Output 10/03/22 10/04/22 10/05/22 10/06/22 23:59 23:59 23:59 23:59 Intake Total 700 780 Output Total 300 Balance 700 480 Meds/Results Medications: Active Medications Generic Name Dose Route Start Last Admin Trade Name Freq PRN Reason Stop Dose Admin Allopurinol 300 mg 10/06/22 09:00 10/06/22 09:11 Allopurinol 300 Mg Tablet PO 300 mg DAILY HOLLEY Administration Atorvastatin Calcium 40 mg 10/06/22 09:00 10/06/22 09:11 Atorvastat
--- NOTE | 2022-10-06 14:43 | WPDANESPN ---
Anes - Prog Note Post-Op Date/Time: 10/06/22 14:43 Cardiovascular status: normal Respiratory status: normal Airway patency: baseline Mental status: baseline Post-Op hydration status: normal Vital Signs: Last Vital Signs Temp 36.7 C 10/06/22 11:31 Pulse 114 H 10/06/22 11:31 Resp 18 10/06/22 11:31 BP 126/77 10/06/22 11:31 Pulse Ox 93 10/06/22 11:31 O2 Del Method Room Air 10/06/22 08:30 O2 Flow Rate 2 10/05/22 15:00 Pain Score (VAS): 10/15 I/O: Intake & Output 10/05/22 10/06/22 10/06/22 23:59 07:59 15:59 Intake Total 50 300 480 Output Total 300 Balance 50 0 480 Laboratory Tests 10/06/22 05:28 10/06/22 05:28 10/05/22 10/05/22 10/06/22 17:17 21:02 05:28 WBC 13.5 H RBC 4.30 L Hgb 13.2 L Hct 40.1 L MCV 93.3 MCH 30.7 MCHC 32.9 RDW 12.8 Plt Count 196 MPV 11.0 H Immature Gran % (Auto) 0.4 Neut % (Auto) 69.8 Lymph % (Auto) 17.6 L [place] % (Auto) 11.2 H Eos % (Auto) 0.5 Baso % (Auto) 0.5 Lymph # (Auto) 2.37 [place] # (Auto) 1.5 H Eos # (Auto) 0.1 Baso # (Auto) 0.1 Abs Immat Gran (auto) 0.05 H Absolute Neuts (auto) 9.4 H Absolute Nucleated RBC 0.0 Nucleated RBC % 0.0 Sodium Potassium Chloride Carbon Dioxide Anion Gap BUN Creatinine Estim Creat Clear Calc Estimated GFR Glucose POC Capillary Glucose 204 H 153 H Calcium Magnesium 10/06/22 10/06/22 05:28 12:18 WBC RBC Hgb Hct MCV MCH MCHC RDW Plt Count MPV Immature Gran % (Auto) Neut % (Auto) Lymph % (Auto) [place] % (Auto) Eos % (Auto) Baso % (Auto) Lymph # (Auto) [place] # (Auto) Eos # (Auto) Baso # (Auto) Abs Immat Gran (auto) Absolute Neuts (auto) Absolute Nucleated RBC Nucleated RBC % Sodium 133 L Potassium 4.0 Chloride 97 L Carbon Dioxide 31 H Anion Gap 5 L BUN 18 Creatinine 0.80 Estim Creat Clear Calc 91 Estimated GFR > 60 Glucose 123 H POC Capillary Glucose 144 H Calcium 8.9 Magnesium 1.9 Post-procedural complaints: none Patient Feedback: Patient satisfied with anesthetic care.
--- NOTE | 2022-10-06 15:34 | PC.NURSE ---
right knee dressing changed prior to discharge
== END 2022-10-06 15:05 | disposition home or self-care (01) ==
LOC: ANHSURGERY 11:20 → ANH3MED 17:48
PROVIDERS: Nurse Practitioner; PCP Family Medicine Adolescent Medicine; Visit Provider Orthopaedic Surgery
PROC: (CPT 27447; principal; 2022-10-05 09:00)
DX: M17.11 Unilateral primary osteoarthritis, right knee (principal); G89.18 Other acute postprocedural pain; I10 Essential (primary) hypertension; E11.9 Type 2 diabetes mellitus without complications; K42.9 Umbilical hernia without obstruction or gangrene; E78.2 Mixed hyperlipidemia; J45.909 Unspecified asthma, uncomplicated; I69.398 Other sequelae of cerebral infarction; H53.9 Unspecified visual disturbance; I35.0 Nonrheumatic aortic (valve) stenosis; E66.9 Obesity, unspecified; Z68.35 Body mass index [BMI] 35.0-35.9, adult; Z79.82 Long term (current) use of aspirin; Z79.84 Long term (current) use of oral hypoglycemic drugs
CPT/HCPCS: 27447; 64447; 36415; 73560; 80048; 82040; 82948; 83735; 85025; 86850; 86900; 86901; 97110; 97116; 97161; 97165; 97530; 97535; A9270; C1713; C1776; J0171; J0690; J1100; J1170; J2250; J2270; J2370; J2405; J2704; J2795; J3010; J3370; J7120

== ENCOUNTER 2022-12-06 13:30 | Outpatient (RCR) | payer MEDICARE, SELFPAY ==
--- NOTE | 2022-10-11 15:56 | PTOPEVAL1 ---
Assessment and note entered by Jerry Colon, PT, DPT Evaluation Information Assessment Status Evaluation Diagnosis R TKA Onset 10/05/22 Subjective Information Pt states since surgery his pain seems to get better each day. He states he is icing and resting regularly. He states pain has been well controlled since the 2 days after surgery. He states he would like to progress from a walker to no device. He states he is having a his L knee replacement in December tentatively. He states he likes to bake so would like to be able to stand for at least an hour at a time. Reported Pain Level Pain Score 0: Self Report Assessment PT Clinical Summary Vipul presents to therapy today for his initial evaluation following a R TKA on 10/05/22. Today he reports well managed pain. He demonstrates active R knee motion from -8 deg to 80 deg. He is currently ambulating with a wheeled walker with very minimal deviations. Skilled physical therapy services are indicated to improve ROM, strength, mobility, progress ambulation, to limit impairments, and to promote unlimited functional mobility. Plan of Care Interventions Electrical Stimulation,Gait Training,Hot Pack/Cold Pack,Manual Therapy,Neuro Re-education,Patient/ Caregiver Educati,Therapeutic Activities, Therapeutic Exercise PT Services Indicated Yes Treatment Frequency and 2x/wk for 8 wks Duration These treatments will address the objective and functional deficits as defined above. The patient will be advanced safely and appropriately in order for the patient to progress towards his/her prior level of function. Additional exercises will be introduced and as well as a comprehensive home exercise program upon discharge, if needed, ?to ensure carryover of functional gains achieved in the clinic. This treatment plan has been reviewed and agreement upon by the patient.
--- NOTE | 2022-11-08 16:50 | PTOPPROGNS ---
Assessment and note entered by Jerry Colon, PT, DPT Evaluation Information Assessment Status Progress Diagnosis R TKA Onset 10/05/22 Subjective Information Pt states overall he is progressing well. He states he has returned to driving. Pt reports 80% improvement in his overall symptoms. Pt states he stood for 30-45 mins today and only had to sit once. Assessment PT Clinical Summary Vipul presents to therapy today for his progress report following 8 visits of skilled therapy to treat his R TKA. Today he demonstrates improved active ROM -2 -110 deg. He demonstrates improved gait pattern and gait speed but still has some minor deviations. He reports excellent compliance with his HEP and is progressing well towards his therapy goals. Continuation of skilled therapy services are indicated to address the remaining deficits, to improve functional mobility, and to return to baseline function. Plan of Care Interventions Electrical Stimulation,Gait Training,Hot Pack/Cold Pack,Manual Therapy,Neuro Re-education,Patient/ Caregiver Educati,Therapeutic Activities, Therapeutic Exercise PT Services Indicated Yes Treatment Frequency and 2x/wk for 4 wks Duration These treatments will address the objective and functional deficits as defined above. The patient will be advanced safely and appropriately in order for the patient to progress towards his/her prior level of function. Additional exercises will be introduced and as well as a comprehensive home exercise program upon discharge, if needed, ?to ensure carryover of functional gains achieved in the clinic. This treatment plan has been reviewed and agreement upon by the patient.
--- NOTE | 2022-12-06 14:30 | PTOPDC ---
Assessment and note entered by Jerry Colon, PT, DPT Evaluation Information Assessment Status Discharge Diagnosis R TKA Onset 10/05/22 Subjective Information Pt states his knee still feels a little stiff. He states he does not get any sharp pains anymore. He reports no functional limitations at this time. Pt reports 80-85% improvement in his overall symptoms. Reported Pain Level Pain Score 0: Self Report Assessment PT Clinical Summary Vipul presents to therapy today for his progress report following 16 visits of skilled therapy to treat his R TKA performed on 10/05/22. Today he demonstrates active motion from 0-110 deg. He demonstrates good R knee strength and his only functional limitations at this time and d/t his L knee. He will be discharged from skilled services at this time with instructions to continue his HEP upon discharge to continue progressing. Plan of Care PT Services Indicated No
== END 2022-12-08 10:23 | disposition home or self-care (01) ==
LOC: ANHGOSHPT 13:30
PROVIDERS: PCP Family Medicine Adolescent Medicine; Visit Provider Orthopaedic Surgery
DX: Z47.1 Aftercare following joint replacement surgery (principal); Z96.651 Presence of right artificial knee joint
CPT/HCPCS: 97110; 97112; 97140; 97161; 97530

== ENCOUNTER 2022-12-28 07:54 | Outpatient (CLI) | payer MEDICARE, SELFPAY ==
[2022-12-28 08:30] LABS: Basophils Absolute Auto 0.1 K/mm3 (0.0-0.1); Basophils Percent Auto 0.7 % (0.2-1.2); Eosinophils Absolute Auto 0.3 K/mm3 (0-0.3); Eosinophils Percent Auto 4.9 % (0-4.4); Hematocrit 41.5 % (42.0-52.0); Immature Granulocyte Absolute 0.01 K/mm3 (0.00-0.031); Immature Granulocyte Percent A 0.1 % (0-0.5); Lymphocytes Absolute Auto 2.15 K/mm3 (0.9-3.2); Lymphocytes Percent Auto 31.7 % (18.3-44.2); Mean Corpuscular HGB Conc 31.3 g/dl (32-36); Mean Corpuscular Hemoglobin 25.7 pg (26-34); Mean Corpuscular Volume 82.2 fl (80-100); Mean Platelet Volume 10.6 fl (7.4-10.4); Monocytes Absolute Auto 0.6 K/mm3 (0.1-0.6); Monocytes Percent Auto 8.4 % (2.6-8.5); Neutrophils Absolute Auto 3.7 K/mm3 (1.3-6.7); Neutrophils Percent Auto 54.2 % (45.5-73.1); Platelet Count Result 228 k/mm3 (150-375); Red Blood Count 5.05 M/mm3 (4.6-6.20); Red Cell Distribution Width 14.6 % (11.5-14.5); White Blood Count 6.8 K/mm3 (4.5-10.0)
[2022-12-28 08:38] LABS: Albumin Level 4.3 g/dL (3.5-5.1)
[2022-12-28 08:42] LABS: Anion Gap 5 mmol/L (8-16); Blood Urea Nitrogen 22 mg/dL (9-20); Calcium 9.8 mg/dL (8.4-10.2); Carbon Dioxide 35 mmol/L (22-30); Chloride 101 mmol/L (98-107); Estimated Glomerular Filt Rate > 60; Glucose 102 mg/dL (65-110); Potassium 4.6 mmol/L (3.4-5.0); Sodium 141 mmol/L (137-145)
[2022-12-28 08:53] LABS: Hemoglobin A1C 5.5 % (<5.7)
[2022-12-28 09:12] LABS: Urine Cotinine NEGATIVE
== END 2022-12-28 07:55 | disposition home or self-care (01) ==
LOC: ANHSURGERY 07:58
PROVIDERS: Anesthesiology; PCP Family Medicine Adolescent Medicine; Visit Provider Orthopaedic Surgery
DX: Z01.812 Encounter for preprocedural laboratory examination (principal); M17.12 Unilateral primary osteoarthritis, left knee; E11.9 Type 2 diabetes mellitus without complications; Z79.899 Other long term (current) drug therapy
CPT/HCPCS: 80048; 80307; 82040; 83036; 85025; 86850; 86900; 86901; 87081

== ENCOUNTER 2023-01-03 02:02 | Day surgery (SDC) | payer MEDICARE, SELFPAY ==
[2022-12-27 09:35] VITALS: BMI 34.0
--- NOTE | 2022-12-27 09:56 | PC.NURSE ---
Report to the Outpatient Waiting Room, entrance under the green pavilion located off [facility], at time __6:00AM on date __01/03/23 . Planned Procedure Time: __7:30AM . Time changes happen often and if your time is changed the preop area will call you the afternoon before. - You and your visitor will be asked to self-screen and do not enter if you have any COVID symptoms. - A mask is optional within the hospital at this time. Patients may have clear liquids (water, carbonated beverages, clear teas, apple juice) until 3 hours prior to surgery with a maximum of 20 ounces. - No food from midnight until time of surgery Take the following medications with a SIP of water the morning of surgery: __NONE DO NOT STOP ANY OF YOUR OTHER PRESCRIPTION MEDICATIONS PRIOR TO SURGERY ?EXCEPT THE FOLLOWING Medications to discontinue per physician ___HOLD ALL VITAMINS/SUPPLEMENTS 7 DAYS PRE-OP PER DR GREY(PER PATIENT) Date to take last dose____12/27/22 Please no make-up, nail ugandan, hairspray, perfume, deodorant, or body powder the day of surgery. No jewelry (including any body piercings) or valuables the day of surgery, leave them at home. Please take a shower or bath the night before, or the morning of, surgery with an antibacterial soap. Wear comfortable, loose fitting clothing. Children are encouraged to wear pajamas. - Jewelry must be removed prior to entering the operating room. Rings and piercings that are not removed may be cut off. - The hospital will not accept responsibility for valuables. - Please leave all valuables, including medications, at home the day of surgery. If you are going home after surgery, a licensed bus van driver must drive you home. - NO public transportation without another adult if you receive anesthesia. - We recommend that an adult stay with you for 24 hours following discharge. - We also recommend that you do not drive, make important decision, drink alcoholic beverages, or take any drugs that were not prescribed by your health care provider for at least 24 hours after your discharge time. Follow any additional instructions given to you from your surgeon. If you or anyone in your household have experienced Covid symptoms in the past week, please notify your surgeon or the nurse liaison at the phone number below for possible testing. Telephone instructions given to ____PATIENT and asked if any additional questions and then verbalized understanding. Patient advised to call surgeon office or pre surgery nurse liaison [phone] if any additional questions.
[2023-01-03] VITALS (12 sets, daily range): BP systolic 108–161; BP diastolic 66–102; PULSE 76–100; RESP 14–22; TEMP 36.2–37.2; O2SAT 93–99; BMI 35.2
--- NOTE | ~2023-01-03 | XR_ITS ---
EXAMINATION: XR_[id number]_CR DATE: 01/03/2023 10:41 INDICATION: Postoperative evaluation following left total knee arthroplasty. TECHNIQUE: Anteroposterior and lateral views of the left knee were obtained. COMPARISON: None. FINDINGS: Left total knee arthroplasty with patellar resurfacing appears well seated and in near anatomic align ment. No fractures identified. Expected postoperative subcutaneous, intramedullary and intra-articul ar gas. IMPRESSION: 1. Left total knee arthroplasty, negative for postoperative purposes. Reviewed, dictated and finalized at location B.
[2023-01-03] MEDS: ACETAMINOPHEN 500 MG TABLET 1000 MG PO (06:46)
[2023-01-03] MEDS: TRANEXAMIC ACID 1,000MG/ISO100 1,000 MG/100 ML BAG 200 MG IVPB (06:47)
[2023-01-03] MEDS: LACTATED RINGERS 1,000 ML 30 ML IV CONT ×2 (06:47→10:22)
[2023-01-03 06:50] LABS: Glucose Point of Care 109 mg/dl (65-105)
--- NOTE | 2023-01-03 07:15 | WPDHPUPDATE1 ---
History and Physical Update Update Date/Time: 01/03/23 07:15 History and Physical has been reviewed, including an updated exam of the patient. There are NO changes in the patient's condition. Risks, benefits, and alternatives have been discussed and questions answered. Patient agrees to proceed with procedure.
--- NOTE | 2023-01-03 07:26 | WPDANESEPPF ---
Anes - Initial Pre Proc Eval Procedure: Operation Date: 01/03/23 07:30 Proposed Procedures p Left Total Knee Arthroplasty - Jerson Cartagena MD Date/Time: 01/03/23 07:26 Surgeon: Jerson Cartagena MD Pre Op Diagnosis: OA left knee Patient Data Age: 72 Gender: M Height: 1.83 m Weight: 114.5 kg Last Vital Signs Temp 36.3 C L 01/03/23 06:24 Pulse 98 01/03/23 06:24 Resp 18 01/03/23 06:24 BP 147/97 H 01/03/23 07:15 Pulse Ox 98 01/03/23 06:24 O2 Del Method Room Air 01/03/23 06:24 Allergies Allergy/AdvReac Type Severity Reaction Status Date / Time Sulfa (Sulfonamide Allergy Intermediate Rash Verified 01/03/23 06:28 Antibiotics) RYE FLOUR Allergy Mild Swelling, Uncoded 01/03/23 06:29 ITCHING Home Medications Medication Instructions Recorded Confirmed Type atorvastatin 40 mg tablet 40 mg PO DAILY #90 tabs 05/31/22 01/03/23 Rx allopurinol 300 mg tablet 300 mg PO DAILY #90 tabs 06/18/22 01/03/23 Rx potassium chloride 10 mEq 10 meq PO DAILY #90 tabs 06/28/22 01/03/23 Rx tablet,extended release (Klor-Con) hydrochlorothiazide 25 mg tablet 25 mg PO QAM 09/14/22 01/03/23 History irbesartan 150 mg tablet 150 mg PO HS 09/14/22 01/03/23 History acetaminophen 650 mg 650 mg PO Q8H PRN Pain 09/30/22 01/03/23 History tablet,extended release sennosides 8.6 mg tablet (Senokot) 8.6 mg PO HS 10/26/22 01/03/23 History metformin 500 mg tablet 1,000 mg PO BID #360 tabs 10/27/22 01/03/23 Rx Saccharomyces boulardii 250 mg 250 mg PO BID 12/01/22 01/03/23 History capsule (Daily Probiotic (S. boulardii)) aspirin 81 mg tablet,delayed 81 mg PO DAILY 12/01/22 01/03/23 History release (Adult Aspirin Regimen) glucosamine 750 ez-qyxanugmbge-gms 1 tablet PO BID 12/01/22 01/03/23 History no1 625 mg-C 30 mg-kasey 1 mg tablet (Umksmidtrwg-Kwvweicvrlx-YXH) magnesium 250 mg tablet 500 mg PO DAILY 12/01/22 01/03/23 History multivitamin 1 tablet PO DAILY 12/01/22 01/03/23 History omega-3-dha 120 mg-epa 180 mg-fish 1 cap PO DAILY 12/01/22 01/03/23 History oil-vitamin D3 1,000 unit capsule furosemide 40 mg tablet 40 mg PO QAM #90 tabs 12/08/22 01/03/23 Rx rivaroxaban 10 mg tablet (Xarelto) 10 mg PO DAILY PE Prophylaxis s/p 12/23/22 12/27/22 Rx joint replacement surgery #14 tabs Laboratory Tests 01/03/23 06:44 POC Capillary Glucose 109 H mg/dl (65-105) Patient hx anesthesia problems: none Family hx anesthesia problems: none Results Review: All pre-operative results and documents have been reviewed as part of the pre-operative evaluation. [facility] Past Medical History Medical History (Updated 12/23/22 @ 08:52 by Jerson Cartagena MD) Aortic stenosis (09/2022) Moderate aortic stenosis, valve area 1.37 cm2 Arthritis of left knee Asthma CVA (cerebral vascular accident) Diabetes type 2, controlled History of colon polyps History of retinal vein occlusion Hyperlipidemia Hypertension Obesity Surgical History Surgical History H/O colonoscopy with polypectomy H/O wisdom tooth extraction Status post total right knee replacement 10/05/2022 Family History Family History Father Acute myocardial infarction Mother Acute myocardial infarction Sibling Cerebrovascular accident CAD (coronary artery disease) Social History Social History Social History: He lives with his Gianna and they have two daughters. 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 code status full code Smoking status: Never smoker Tobacco type: cigarettes Alcohol intake: current Alcohol use details: 1-2 drinks monthly Substance use: never Substance use type: does not use Lack of Transportation: No Lack of Food: Never True Current Housing: I Have Housing Concerned About Future Housing: No
[2023-01-03] MEDS: ceFAZolin 2 GM/D5W 50 ML 2 GM/50 ML BAG IVPB ×2 (07:42→16:02)
--- NOTE | 2023-01-03 07:42 | WPDANESPNB ---
Anes - Peripheral Nerve Block Date/Time: 01/03/23 07:42 I have discussed with the patient/family/POA the placement of a peripheral nerve block for post-operative pain management, including associated risks, benefits, complications, and side effects. Alternative methods of post-operative analgesia were detailed. Questions were solicited and answers provided to the satisfaction of the patient/family/POA. Time-Out: A pre-procedural Time-Out was completed immediately before starting the procedure and confirmed: Patient Identification, Site, Procedure, Patient Position and the Availability of Requisite Equipment. Clinical Indications: Acute post-operative pain management requested by the operative surgeon. Nerve Block Insertion Note Anes-nerve block: adductor canal left Patient position: supine Skin prep: chlorhexidine Needle: 22 gauge, stimulating, insulated echogenic needle. Needle length: 80 mm Technique: ultrasound Technique comment: in plane Injectate: bupivacaine 0.25% with epi 5 mcg/ml (30cc) Observations: tolerated well Complications: none Procedure start time:: 725 Procedure end time:: 730
[2023-01-03] MEDS: GENTAMICIN BONE CEMENT REFOBACIN 1 EACH TOPICAL (08:27)
[2023-01-03] MEDS: ceFAZolin SODIUM 1 GM VIAL IV PUSH (09:20)
--- NOTE | 2023-01-03 10:09 | P.OP_ITS ---
Procedure Note - Detailed Date of Procedure 01/03/23 Pre-op Diagnosis OA left knee Post-op Diagnosis Same Procedure Performed Left total knee replacement Surgeon Jerson Cartagena MD Color Television Console Monitor Leann Tao Anesthesia General and Regional Description of Procedure The patient was identified and proper site identified. In the preop holding area the anesthesia team performed a left lower extremity sub sartorial block after which the patient was taken to the operating room and transferred to the OR table positioning supine taking care to pad the torso and extremities. After general anesthetic induction and intubation a nonsterile tourniquet was placed high on the left thigh. The left lower extremity was prepped and draped in the usual sterile fashion. The extremity was exsanguinated and with the knee flexed tourniquet was inflated to 300 mmHg remaining up for approximately 67 minutes. An anterior midline incision was made and a modified medial parapatellar approach was used. Infra and suprapatellar fat pads were excised. Patella was resected leaving 15 mm thickness and prepared for the size 31 round three peg component. Using the intramedullary guide the distal femur was cut in the proper orientation for the size 67.5 femoral component. Using the extramedullary guide the tibia was cut perpendicular to the long axis protecting collateral ligaments and popliteal structures. It was sized to a 71. Flexion and extension gaps were balanced. Trial reduction was undertaken and the weight-bearing line was noted to passed through the center of the joint. Proximal tibia was drilled and punched in the proper orientation for the real component. Trial components were removed. The bone surfaces were washed with pulsatile lavage and dried. The real components were cemented simultaneously. The knee was held in extension and the patella held clamped until the cement had cured. Excess cement was removed from the joint. After trialing it was determined that the 10 mm insert gave full range of motion from 0-120 degrees of flexion and the patella tracked in the femoral groove with no lift-off. After final lavage the joint the real size 10 E poly insert was placed and secured with a locking bar. A Betadine and saline wash was placed into the wound and allowed to sit for approximately 3 minutes and then evacuated. Periarticular tissues were infiltrated with 60 cc of the arthroplasty solution. Surgicel powder was applied into the wound during the closure. The extensor mechanism was repaired with #2 Vicryl suture and 0 looped PDS suture. Subcu was reapproximated with 3-0 Monocryl, 2-0 Quill and tissue adhesive for the skin. A sterile dressing was applied. He tolerated the procedure well, was awakened and extubated, transferred to the bed and was taken to recovery area in stable condition. There were no known intraoperative complications. Perioperative antibiotics were administered. Estimated Blood Loss 200 Tourniquet Time 67 Drains No Packing No Pathology None sent Complications No immediate complications Condition Stable Disposition PACU [facility] Billing Surgery - Charge Forward: Surgery Billing ([id number])
[2023-01-03 10:41] LABS: Glucose Point of Care 151 mg/dl (65-105)
--- NOTE | 2023-01-03 11:24 | ADMGEN ---
This patient, Vipul Meredith, was admitted to -. Patient/family oriented to hospital policies and general routines including ID bracelet, bed and alarms, visiting hours, pain management, procedures, bathroom and other care routines, personal items, smoking policy, room service/diet, and visiting hours. Information on how to activate the Rapid Response Team has been discussed. Patient/Family are encouraged to report perceived risks to care and to ask questions if they do not understand what they are told or what they should do.
[2023-01-03] MEDS: SODIUM CHLORIDE 0.9% IV 1,000 ML 125 ML IV CONT (11:55)
[2023-01-03] MEDS: oxyCODONE/ACETAMINOPHEN (*CRX) 5-325 MG TABLET 1 TABLET PO ×3 (11:56→20:29)
[2023-01-03] MEDS: oxyCODONE HCL (*CRX) 5 MG TAB IR PO (13:11)
[2023-01-03] MEDS: FUROSEMIDE 40 MG TABLET PO (13:12)
[2023-01-03] MEDS: allopurinoL 300 MG TABLET PO (13:12)
[2023-01-03] MEDS: hydroCHLOROthiazide 25 MG TABLET PO (13:12)
[2023-01-03] MEDS: ATORVASTATIN 40 MG TABLET PO (13:12)
--- NOTE | 2023-01-03 13:17 | PM.IMHP ---
H&P: HPI History of Present Illness Date/Time: 01/03/23 13:17 [facility] Past Medical History Medical History (Updated 12/23/22 @ 08:52 by Jerson Cartagena MD) Aortic stenosis (09/2022) Moderate aortic stenosis, valve area 1.37 cm2 Arthritis of left knee Asthma CVA (cerebral vascular accident) Diabetes type 2, controlled History of colon polyps History of retinal vein occlusion Hyperlipidemia Hypertension Obesity Surgical History Surgical History (Updated 01/03/23 @ 10:53 by Santana Benitez MD) H/O colonoscopy with polypectomy H/O wisdom tooth extraction History of total left knee replacement (01/2023) History of total right knee replacement (09/2022) Family History Family History Father Acute myocardial infarction Mother Acute myocardial infarction Sibling Cerebrovascular accident CAD (coronary artery disease) Social History Social History Social History: He lives with his Gianna and they have two daughters. 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 code status full code Smoking status: Never smoker Tobacco type: cigarettes Alcohol intake: current Alcohol use details: 1-2 drinks monthly Substance use: never Substance use type: does not use Lack of Transportation: No Lack of Food: Never True Current Housing: I Have Housing Concerned About Future Housing: No Difficulty Paying Gas/Electric Bills: No Difficulty Paying for Meds: No Currently Unemployed: No Education: Bachelor's Degree Difficulty w/ Childcare or Family Care: No Living arrangements: with family Additional living arrangements comments: Occupation/Education: occupation Additional occupation/education comments: hernandez Spiritual care concerns: No Meds Home Medications and Allergies Home Medications Medication Instructions Recorded Confirmed Type atorvastatin 40 mg tablet 40 mg PO DAILY #90 tabs 05/31/22 01/03/23 Rx allopurinol 300 mg tablet 300 mg PO DAILY #90 tabs 06/18/22 01/03/23 Rx potassium chloride 10 mEq 10 meq PO DAILY #90 tabs 06/28/22 01/03/23 Rx tablet,extended release (Klor-Con) hydrochlorothiazide 25 mg tablet 25 mg PO QAM 09/14/22 01/03/23 History irbesartan 150 mg tablet 150 mg PO HS 09/14/22 01/03/23 History acetaminophen 650 mg 650 mg PO Q8H PRN Pain 09/30/22 01/03/23 History tablet,extended release sennosides 8.6 mg tablet (Senokot) 8.6 mg PO HS 10/26/22 01/03/23 History metformin 500 mg tablet 1,000 mg PO BID #360 tabs 10/27/22 01/03/23 Rx Saccharomyces boulardii 250 mg 250 mg PO BID 12/01/22 01/03/23 History capsule (Daily Probiotic (S. boulardii)) aspirin 81 mg tablet,delayed 81 mg PO DAILY 12/01/22 01/03/23 History release (Adult Aspirin Regimen) glucosamine 750 sn-akudtuhosst-cme 1 tablet PO BID 12/01/22 01/03/23 History no1 625 mg-C 30 mg-kasey 1 mg tablet (Eeuenckjmrl-Aacuvivdfyz-HCG) magnesium 250 mg tablet 500 mg PO DAILY 12/01/22 01/03/23 History multivitamin 1 tablet PO DAILY 12/01/22 01/03/23 History omega-3-dha 120 mg-epa 180 mg-fish 1 cap PO DAILY 12/01/22 01/03/23 History oil-vitamin D3 1,000 unit capsule furosemide 40 mg tablet 40 mg PO QAM #90 tabs 12/08/22 01/03/23 Rx rivaroxaban 10 mg tablet (Xarelto) 10 mg PO DAILY PE Prophylaxis s/p 12/23/22 12/27/22 Rx joint replacement surgery #14 tabs Allergies Allergy/AdvReac Type Severity Reaction Status Date / Time Sulfa (Sulfonamide Allergy Intermediate Rash Verified 01/03/23 06:28 Antibiotics) RYE FLOUR Allergy Mild Swelling, Uncoded 01/03/23 06:29 ITCHING Vital Signs Vital Signs - 24 hr 01/03/23 06:24 01/03/23 07:15 01/03/23 10:22 Temperature 36.3 C L 37.2 C Pulse Rate 98 76 Respiratory Rate 18 16 Blood Pressure 161/102 H 147/97 H 126/69 Pulse Oximetry 98 99 Oxygen Delivery Room Air Simple Face Mask Oxygen
[2023-01-03] MEDS: SENNA/DOCUSATE SODIUM TABLET 2 TAB PO (16:02)
--- NOTE | 2023-01-03 17:00 | PM.IMCN ---
Assessment and Plan Assessment and plan (1) Status post total left knee replacement: Code(s): Z96.652 - Presence of left artificial knee joint Status: Acute Assessment and Plan: Postop care per Dr. Cartagena Pain management per Dr. Cartagena. He has oxycodone DVT prophylaxis as per Dr. Cartagena. He has SCDs and Xarelto. Encourage incentive spirometer Cryo cuff is intact to left knee OT and PT per Dr. Cartagena (2) Type 2 diabetes mellitus without complications: Code(s): E11.9 - Type 2 diabetes mellitus without complications Status: Chronic Assessment and Plan: Accu-Cheks AC and HS with sliding scale insulin hypoglycemic protocol Check A1c (3) Mixed hyperlipidemia: Code(s): E78.2 - Mixed hyperlipidemia Status: Chronic Assessment and Plan: Continue with Lipitor (4) Hypertension: Code(s): I10 - Essential (primary) hypertension Status: Acute Assessment and Plan: Continue with Lasix, hydrochlorothiazide, and Avapro. Continue to monitor basic metabolic panel daily (5) Aortic stenosis: Onset Date: 09/2022 Code(s): I35.0 - Nonrheumatic aortic (valve) stenosis Status: Acute Assessment and Plan: The patient has an aortic murmur. The patient stated that he has had this for years. (6) Gout: Code(s): M10.9 - Gout, unspecified Status: Acute Assessment and Plan: Continue with allopurinol HPI Data of Consult Consult date: 01/03/23 Requesting Physician: Jerson Cartagena MD Primary Care Provider: Santana Benitez MD Consult Narrative Narrative: Vipul Meredith is a 72 year old male who has severe arthritis to left knee. The patient had recovered from a right total knee arthroplasty per Dr. Baum on 10/05/2022 and has recovered well. The patient has chronic pain to his left knee and and was having difficulty ambulating short distances because of the pain medially in his left any. His right knee is now performing well for him. The patient has no complaints at this time. He is currently laying in bed with the cryo cuff on. Please see the operative note per Dr. Schneider for today 01/03/2023 where the patient had a left total knee replacement. No complications were noted. He has a history of aortic valve stenosis, diabetes and hypertension. The hospitalist group has been asked to consult on this patient on the date of service of 01/03/2023. Review of Systems Review of Systems: All systems reviewed & are unremarkable except as noted in HPI and below Constitutional: Constitutional: Reports as per HPI and Reports no additional constitutional complaints Eyes: Eyes: Reports as per HPI and Reports no additional eye complaints ENT: Reports system reviewed and no additional complaints, except as documented and Reports Normal hearing present Cardiovascular: Cardiovascular: Reports no additional cardiovascular complaints Respiratory: Respiratory: Reports no additional respiratory complaints and Reports no additional respiratory complaints Gastrointestinal: Gastrointestinal: Reports as per HPI and Reports no additional gastrointestinal complaints Musculoskeletal: Musculoskeletal: Reports no additional musculoskeletal complaints Integumentary/Breasts: Skin/Breast: Reports system reviewed and no additional complaints, except as docu and Reports as per HPI Neurologic: Reports system reviewed and no additional complaints, except as documented, Reports as per HPI and Reports Normal hearing present Psychiatric: Psychiatric: Reports no additional psychiatric complaints and Reports as per HPI Endocrine: Endocrine: Reports no additional endocrine complaints Hematologic/Lymphatic: Hematologic/Lymphatic: Reports no additional hematologic/lymphatic complaints Allergic/Immunologic: Allergic/Immunologic: Reports no additional allergic/immunologic complaints [facility] Past Medical History Medical History (Updated 01/03/23 @ 17:23 by Ashley Cosme
[2023-01-03 17:35] LABS: Glucose Point of Care 139 mg/dl (65-105)
[2023-01-03] MEDS: IRBESARTAN 150 MG TABLET PO (20:29)
[2023-01-03] MEDS: FAMOTIDINE 20 MG TABLET PO (20:29)
[2023-01-03] MEDS: SENNOSIDES 8.6 MG TABLET PO (20:29)
[2023-01-03 21:59] LABS: Glucose Point of Care 147 mg/dl (65-105)
[2023-01-04 00:13] VITALS: BP 129/72; PULSE 99; RESP 18; TEMP 36.6; O2SAT 95
[2023-01-04] MEDS: ceFAZolin 2 GM/D5W 50 ML 2 GM/50 ML BAG IVPB ×2 (00:54→07:35)
[2023-01-04] MEDS: oxyCODONE HCL (*CRX) 5 MG TAB IR PO ×3 (00:54→12:02)
[2023-01-04 03:55] VITALS: BP 127/73; PULSE 97; RESP 16; TEMP 36.9; O2SAT 97
[2023-01-04] MEDS: oxyCODONE/ACETAMINOPHEN (*CRX) 5-325 MG TABLET 1 TABLET PO ×3 (05:43→12:01)
[2023-01-04 06:28] LABS: Basophils Percent Auto 0.2 % (0.2-1.2); Eosinophils Percent Auto 0.2 % (0-4.4); Hematocrit 35.6 % (42.0-52.0); Hemoglobin 10.8 g/dL (14.0-18.0); Immature Granulocyte Absolute 0.04 K/mm3 (0.00-0.031); Immature Granulocyte Percent A 0.4 % (0-0.5); Lymphocytes Absolute Auto 1.48 K/mm3 (0.9-3.2); Lymphocytes Percent Auto 14.3 % (18.3-44.2); Mean Corpuscular HGB Conc 30.3 g/dl (32-36); Mean Corpuscular Hemoglobin 25.1 pg (26-34); Mean Corpuscular Volume 82.8 fl (80-100); Mean Platelet Volume 11.7 fl (7.4-10.4); Monocytes Absolute Auto 1.4 K/mm3 (0.1-0.6); Monocytes Percent Auto 13.5 % (2.6-8.5); Neutrophils Absolute Auto 7.4 K/mm3 (1.3-6.7); Neutrophils Percent Auto 71.4 % (45.5-73.1); Platelet Count Result 231 k/mm3 (150-375); Red Cell Distribution Width 14.8 % (11.5-14.5); White Blood Count 10.4 K/mm3 (4.5-10.0)
[2023-01-04 06:39] LABS: Alanine Aminotransferase 20 U/L (6-50); Alkaline Phosphatase 58 U/L (38-126); Anion Gap 5 mmol/L (8-16); Aspartate Amino Transferase 26 U/L (17-59); Bilirubin,Total 0.5 mg/dL (0.2-1.3); Blood Urea Nitrogen 17 mg/dL (9-20); Calcium 8.9 mg/dL (8.4-10.2); Carbon Dioxide 32 mmol/L (22-30); Chloride 97 mmol/L (98-107); Estimated CRCL calculation 109 ml/min; Estimated Glomerular Filt Rate > 60; Glucose 122 mg/dL (65-110); Magnesium 1.8 mg/dL (1.6-2.3); Potassium 3.5 mmol/L (3.4-5.0); Sodium 134 mmol/L (137-145)
[2023-01-04 07:13] LABS: Hemoglobin A1C 5.6 % (<5.7)
--- NOTE | 2023-01-04 07:55 | PM.DS ---
DS: Admitting Diagnosis Discharge Date January 04, 2023 Admitting Diagnosis osteoarthritis left knee DS: Discharge Diagnosis Discharge Diagnosis Plan 72-year-old male postop day one left total knee replacement. Has done well overnight is going to be discharged home. Follow-up with me will be in approximately two weeks for wound check. His therapy begins formally in a week but he is going to be working on his own for the balance of this week. He is to call with any questions prior to follow-up. DS: Summary Hospital Course Hospital Course: Following the patient's surgery was admitted overnight for observation and pain control. Therapy was initiated. Did well and made good progress and is going to be discharged home today, postop day one. Status at Discharge Functional status at discharge: uses cane/walker Overall status at discharge: patient is not back to baseline Time Spent with Patient Time attestation: Total time spent providing and/or coordinating discharge services: Exam Const: General: cooperative, no acute distress and alert Nutritional Appearance: other Orientation/consciousness: patient oriented x3 Limitations: no limitations HENMT: Head: normal to inspection Chest: Chest palpation & inspection: normal inspection of the chest Resp: Effort & Inspection: normal respiratory effort and able to speak in complete sentences GI: Inspection: other Neuro: General: patient oriented x3 Cognition (Neuro): normal cognition Speech: normal speech Extrem: General: normal to inspection and other Other: Exam of The left knee shows dry incision. Minimal swelling and no bruising noted. Grossly motor and sensory function left lower extremity unremarkable. Psych: Appearance: grossly normal Mental Status: mental status grossly normal Radiology Reports: Comments: EXAMINATION: [id number]_[id number]_CR DATE: 01/03/2023 10:41 INDICATION: Postoperative evaluation following left total knee arthroplasty. TECHNIQUE: Anteroposterior and lateral views of the left knee were obtained. COMPARISON: None. FINDINGS: Left total knee arthroplasty with patellar resurfacing appears well seated and in near anatomic alignment.? No fractures identified. Expected postoperative subcutaneous, intramedullary and intra-articular gas. IMPRESSION: 1. Left total knee arthroplasty, negative for postoperative purposes. Reviewed, dictated and finalized at location B. Dictated By:? Teofilo Lan MD? 01/03/23 1046 Signed By:? ? <Electronically signed by? Teofilo Lan MD in OV> 01/03/23 1048 DS: Data Data Completed and Pending Labs on day of discharge: Labs from last 24 hours 01/04/23 01/03/23 01/03/23 05:56 21:33 17:24 WBC 10.4 H RBC 4.30 L Hgb 10.8 L Hct 35.6 L MCV 82.8 MCH 25.1 L MCHC 30.3 L RDW 14.8 H Plt Count 231 MPV 11.7 H Immature Gran % (Auto) 0.4 Neut % (Auto) 71.4 Lymph % (Auto) 14.3 L Mcdonald % (Auto) 13.5 H Eos % (Auto) 0.2 Baso % (Auto) 0.2 Lymph # (Auto) 1.48 Mcdonald # (Auto) 1.4 H Eos # (Auto) 0.0 Baso # (Auto) 0.0 Abs Immat Gran (auto) 0.04 H Absolute Neuts (auto) 7.4 H Absolute Nucleated RBC 0.0 Nucleated RBC % 0.0 Sodium 134 L Potassium 3.5 Chloride 97 L Carbon Dioxide 32 H Anion Gap 5 L BUN 17 Creatinine 0.70 Estim Creat Clear Calc 109 Estimated GFR > 60 Glucose 122 H POC Capillary Glucose 147 H 139 H Hemoglobin A1c 5.6 Calcium 8.9 Magnesium 1.8 Total Bilirubin 0.5 AST 26 ALT 20 Alkaline Phosphatase 58 Total Protein 7.0 Albumin 4.0 01/03/23 10:39 WBC RBC Hgb Hct MCV MCH MCHC RDW Plt Count MPV Immature Gran % (Auto) Neut % (Auto) Lymph % (Auto) Mcdonald % (Auto) Eos % (Auto) Baso % (Auto) Lymph # (Aut
[2023-01-04 07:59] LABS: Glucose Point of Care 112 mg/dl (65-105)
[2023-01-04] MEDS: allopurinoL 300 MG TABLET PO (08:17)
[2023-01-04] MEDS: hydroCHLOROthiazide 25 MG TABLET PO (08:17)
[2023-01-04] MEDS: RIVAROXABAN 10 MG TABLET PO (08:18)
[2023-01-04] MEDS: FUROSEMIDE 40 MG TABLET PO (08:18)
[2023-01-04] MEDS: ATORVASTATIN 40 MG TABLET PO (08:18)
[2023-01-04] MEDS: SENNA/DOCUSATE SODIUM TABLET 2 TAB PO (08:18)
[2023-01-04] MEDS: POTASSIUM CHLORIDE 10 MEQ TABLET.ER PO (08:18)
[2023-01-04] MEDS: MULTIVITAMINS THERAPEUTIC TAB (*BKC) 1 TABLET PO (08:18)
[2023-01-04] MEDS: MAGNESIUM OXIDE 400 MG TABLET PO (08:18)
[2023-01-04] MEDS: FAMOTIDINE 20 MG TABLET PO (08:18)
[2023-01-04] MEDS: ASPIRIN 81 MG ENTERIC TABLET PO (08:19)
[2023-01-04] MEDS: polyethylene glycoL 3350 17 GM POWD.PACK PO (08:20)
--- NOTE | 2023-01-04 08:20 | P.PNAN_ITS ---
Anes - Prog Note Post-Op Date/Time: 01/04/23 08:20 Cardiovascular status: normal Respiratory status: normal Airway patency: baseline Mental status: baseline Post-Op hydration status: normal Vital Signs: Last Vital Signs Temp 36.9 C 01/04/23 03:55 Pulse 97 01/04/23 03:55 Resp 16 01/04/23 03:55 BP 127/73 01/04/23 03:55 Pulse Ox 97 01/04/23 03:55 O2 Del Method Room Air 01/03/23 20:00 O2 Flow Rate 2 01/03/23 11:45 Pain Score (VAS): 0 I/O: Intake & Output 01/03/23 01/04/23 01/04/23 23:59 07:59 15:59 Intake Total 790 1050 Output Total 1650 500 Balance -860 550 Laboratory Tests 01/04/23 05:56 01/04/23 05:56 01/03/23 01/03/23 01/03/23 10:39 17:24 21:33 WBC RBC Hgb Hct MCV MCH MCHC RDW Plt Count MPV Immature Gran % (Auto) Neut % (Auto) Lymph % (Auto) Warren % (Auto) Eos % (Auto) Baso % (Auto) Lymph # (Auto) Warren # (Auto) Eos # (Auto) Baso # (Auto) Abs Immat Gran (auto) Absolute Neuts (auto) Absolute Nucleated RBC Nucleated RBC % Sodium Potassium Chloride Carbon Dioxide Anion Gap BUN Creatinine Estim Creat Clear Calc Estimated GFR Glucose POC Capillary Glucose 151 H 139 H 147 H Hemoglobin A1c Calcium Magnesium Total Bilirubin AST ALT Alkaline Phosphatase Total Protein Albumin 01/04/23 01/04/23 05:56 07:49 WBC 10.4 H RBC 4.30 L Hgb 10.8 L Hct 35.6 L MCV 82.8 MCH 25.1 L MCHC 30.3 L RDW 14.8 H Plt Count 231 MPV 11.7 H Immature Gran % (Auto) 0.4 Neut % (Auto) 71.4 Lymph % (Auto) 14.3 L Warren % (Auto) 13.5 H Eos % (Auto) 0.2 Baso % (Auto) 0.2 Lymph # (Auto) 1.48 Warren # (Auto) 1.4 H Eos # (Auto) 0.0 Baso # (Auto) 0.0 Abs Immat Gran (auto) 0.04 H Absolute Neuts (auto) 7.4 H Absolute Nucleated RBC 0.0 Nucleated RBC % 0.0 Sodium 134 L Potassium 3.5 Chloride 97 L Carbon Dioxide 32 H Anion Gap 5 L BUN 17 Creatinine 0.70 Estim Creat Clear Calc 109 Estimated GFR > 60 Glucose 122 H POC Capillary Glucose 112 H Hemoglobin A1c 5.6 Calcium 8.9 Magnesium 1.8 Total Bilirubin 0.5 AST 26 ALT 20 Alkaline Phosphatase 58 Total Protein 7.0 Albumin 4.0 Post-procedural complaints: none Patient Feedback: Patient satisfied with anesthetic care.
[2023-01-04 09:04] VITALS: BP 132/68; PULSE 90; RESP 20; TEMP 35.8; O2SAT 96
--- NOTE | 2023-01-04 10:54 | PM.IMPN ---
Progress Note: A&P Assessment and Plan (1) Status post total left knee replacement: Code(s): Z96.652 - Presence of left artificial knee joint Status: Resolved Assessment and Plan: Postop care per Dr. Cartagena Pain management per Dr. Cartagena. He has oxycodone DVT prophylaxis as per Dr. Cartagena. He has SCDs and Xarelto. OT and PT per Dr. Cartagena (2) Type 2 diabetes mellitus without complications: Code(s): E11.9 - Type 2 diabetes mellitus without complications Status: Chronic Assessment and Plan: Accu-Cheks AC and HS with sliding scale insulin hypoglycemic protocol Resume home meds upon discharge (3) Mixed hyperlipidemia: Code(s): E78.2 - Mixed hyperlipidemia Status: Chronic Assessment and Plan: Continue with Lipitor (4) Hypertension: Code(s): I10 - Essential (primary) hypertension Status: Acute Assessment and Plan: Continue with Lasix, hydrochlorothiazide, and Avapro. (5) Aortic stenosis: Onset Date: 09/2022 Code(s): I35.0 - Nonrheumatic aortic (valve) stenosis Status: Acute Assessment and Plan: The patient has an aortic murmur. The patient stated that he has had this for years. (6) Gout: Code(s): M10.9 - Gout, unspecified Status: Acute Assessment and Plan: Continue with allopurinol Subjective Date/time seen: 01/04/23 10:54 Interval history: Stable Review of Systems Review of Systems: All systems reviewed & are unremarkable except as noted in HPI and below Constitutional: Constitutional: Reports as per HPI and Reports no additional constitutional complaints Eyes: Eyes: Reports as per HPI and Reports no additional eye complaints ENT: Reports system reviewed and no additional complaints, except as documented and Reports Normal hearing present Cardiovascular: Cardiovascular: Reports no additional cardiovascular complaints Respiratory: Respiratory: Reports no additional respiratory complaints and Reports no additional respiratory complaints Gastrointestinal: Gastrointestinal: Reports as per HPI and Reports no additional gastrointestinal complaints Musculoskeletal: Musculoskeletal: Reports no additional musculoskeletal complaints Integumentary/Breasts: Skin/Breast: Reports system reviewed and no additional complaints, except as docu and Reports as per HPI Neurologic: Reports system reviewed and no additional complaints, except as documented, Reports as per HPI and Reports Normal hearing present Psychiatric: Psychiatric: Reports no additional psychiatric complaints and Reports as per HPI Endocrine: Endocrine: Reports no additional endocrine complaints Hematologic/Lymphatic: Hematologic/Lymphatic: Reports no additional hematologic/lymphatic complaints Allergic/Immunologic: Allergic/Immunologic: Reports no additional allergic/immunologic complaints Exam Const: General: cooperative, healthy appearing, comfortable, no acute distress, well developed, alert, awake, Physically active, average body habitus and well nourished Nutritional Appearance: average body habitus and well nourished Orientation/consciousness: oriented to person, oriented to place, oriented to time and patient oriented x3 Limitations: no limitations HENMT: Head: normal to inspection, No palpable skull fracture present, normocephalic, atraumatic and abrasion Ears: hearing grossly normal bilaterally, external ears normal and TM's normal bilaterally Face/Nose/Sinus: Normal external nose present and Normal nares present Eyes: General: appearance normal, both eyes and all related structures Alignment and Position: alignment normal Periorbital: periorbital findings normal Eyelids: eyelids normal Pupils: Equal, round and reactive pupils present EOM: EOMs intact bilaterally Neck: Neck: normal visual inspection, full ROM, no lymphadenopathy, trachea midline and supple Chest: Chest palpation & inspection: normal inspection of the chest
== END 2023-01-04 12:32 | disposition home or self-care (01) ==
LOC: ANHSURGERY 10:05 → ANH3MEDSUR 11:26
PROVIDERS: Nurse Practitioner; PCP Family Medicine Adolescent Medicine; Visit Provider Orthopaedic Surgery
PROC: (CPT 27447; principal; 2023-01-03 07:30)
DX: M17.12 Unilateral primary osteoarthritis, left knee (principal); G89.18 Other acute postprocedural pain; E78.2 Mixed hyperlipidemia; I35.0 Nonrheumatic aortic (valve) stenosis; I10 Essential (primary) hypertension; E11.9 Type 2 diabetes mellitus without complications; M10.9 Gout, unspecified; Z86.73 Personal history of transient ischemic attack (TIA), and cerebral infarction without residual deficits; Z79.84 Long term (current) use of oral hypoglycemic drugs; Z79.82 Long term (current) use of aspirin; E78.5 Hyperlipidemia, unspecified; E66.9 Obesity, unspecified; Z68.35 Body mass index [BMI] 35.0-35.9, adult
CPT/HCPCS: 27447; 64447; 36415; 73560; 80048; 80053; 80307; 82040; 82948; 83036; 83735; 85025; 86850; 86900; 86901; 87081; 97110; 97116; 97161; 97165; 97530; 97535; A9270; C1713; C1776; J0171; J0690; J1100; J1170; J2250; J2270; J2370; J2405; J2704; J2795; J3010; J7030; J7120

== ENCOUNTER 2023-03-15 13:30 | Outpatient (RCR) | payer MEDICARE, SELFPAY ==
--- NOTE | 2023-01-10 11:47 | PTOPEVAL1 ---
Assessment and note entered by Jerry Colon, PT, DPT Evaluation Information Assessment Status Evaluation Diagnosis L TKA Onset 01/03/23 Subjective Information Pt had a L TKA on 01/03/23. He reports pain is well controlled for the most part, he states some exercises for more sore than others. He ambulates in with a 2 WW today. Pt reports in a hernandez and does a lot of standing. He has his R knee replaced 4 months ago. Reported Pain Level Pain Score 5: Self Report Assessment PT Clinical Summary Vipul presents to therapy today for his initial evaluation following a L TKA on 01/03/23. Today he demonstrates decreased active and passive ROM, strength, gait speed and stride length, and overall functional mobility. His current active ROM is -3 deg to 88 deg. Skilled therapy services are indicated to improve strength, functional mobility, pain, and to return to PLOF. Plan of Care Interventions Electrical Stimulation,Gait Training,Hot Pack/Cold Pack,Manual Therapy,Neuro Re-education,Patient/ Caregiver Educati,Therapeutic Activities, Therapeutic Exercise PT Services Indicated Yes Treatment Frequency and 2x/wk for 5 wks Duration These treatments will address the objective and functional deficits as defined above. The patient will be advanced safely and appropriately in order for the patient to progress towards his/her prior level of function. Additional exercises will be introduced and as well as a comprehensive home exercise program upon discharge, if needed, ?to ensure carryover of functional gains achieved in the clinic. This treatment plan has been reviewed and agreement upon by the patient.
--- NOTE | 2023-02-14 16:36 | PTOPPROG ---
Assessment and note entered by Jerry Colon, PT, DPT Evaluation Information Assessment Status Progress Diagnosis L TKA Onset 01/03/23 Subjective Information Pt states the knee is doing pretty good. He states he has started carrying his cane on his walking the morning, he has not been able to do this in 5- 6 years. He states this is about a 15 min walk. Pt states he still has a ramp at his house cause he still does not feel confident on stairs without a railing. Assessment PT Clinical Summary Vipul presents to therapy today for his progress report following 10 visits to treat his L TKA on . Today he demonstrates active knee ROM from -3 to 115deg with full knee extension passively. He has progressed to ambulating without a cane but continues to favor his L side. He continues to struggle with sit to stand and stair ambulation. He reports excellent compliance with his HEP and is progressing well towards his therapy goals. Continuation of skilled therapy services are indicated to address the remaining deficits, to improve knee strength, improve mobility, and to return to PLOF. Plan of Care Interventions Electrical Stimulation,Gait Training,Hot Pack/Cold Pack,Manual Therapy,Neuro Re-education,Patient/ Caregiver Educati,Therapeutic Activities, Therapeutic Exercise PT Services Indicated Yes Treatment Frequency and 2x/wk for 4 wks Duration These treatments will address the objective and functional deficits as defined above. The patient will be advanced safely and appropriately in order for the patient to progress towards his/her prior level of function. Additional exercises will be introduced and as well as a comprehensive home exercise program upon discharge, if needed, ?to ensure carryover of functional gains achieved in the clinic. This treatment plan has been reviewed and agreement upon by the patient.
--- NOTE | 2023-03-10 16:33 | PCPTNOTE ---
On 03/10/23, the student Irene Prado provided care and completed [facility] documentation on this patient. I have reviewed the student's documentation and agree with the findings.
--- NOTE | 2023-03-15 14:10 | PTOPDC ---
Assessment and note entered by Jerry Colon, PT, DPT Evaluation Information Assessment Status Discharge Diagnosis L TKA Onset 01/03/23 Subjective Information Pt states things are going great. Pt states he can do anything he wants to do. [facility]. Reported Pain Level Pain Score 0: Self Report Assessment PT Clinical Summary Vipul presents to therapy today for his progress report following 18 visits to treat his L TKA on . Today he demonstrates active knee ROM from -3 to 115deg with full knee extension passively. His stair ambulation has improved but his muscular endurance still limited how many stairs he can perform with a reciprocal pattern. He has met or progressed well towards all of his therapy goals and no longer requires skilled services. He will be discharged at this time with instructions to conitnue his HEP upon discharge. Plan of Care PT Services Indicated No
== END 2023-03-16 09:16 | disposition home or self-care (01) ==
LOC: ANHGOSHPT 13:30
PROVIDERS: PCP Family Medicine Adolescent Medicine; Visit Provider Orthopaedic Surgery
DX: Z47.1 Aftercare following joint replacement surgery (principal); Z96.652 Presence of left artificial knee joint
CPT/HCPCS: 97014; 97110; 97112; 97140; 97161; 97530; G0283

== ENCOUNTER 2025-02-25 13:00 | Outpatient (CLI) | payer MEDICARE, SELFPAY ==
--- NOTE | ~2025-02-25 | CT_ITS ---
CT Scan of the Chest without Contrast: Clinical Indication: Pulmonary nodule Technique: Contiguous sections were acquired throughout the chest without intravenous contrast. Dose reduction technique was used on this scan by utilizing automated exposure control and iterative recon struction technique. The dose-length product (DLP) was 307.21 mGy-cm. COMPARISON: 12/27/2016 Findings: There is no evidence of any significant mediastinal, hilar or axillary lymphadenopathy. Status post a ortic valve replacement. Extensive coronary artery calcifications are present. Pacemaker device prese nt. There is no evidence of pleural or pericardial effusion. There is scarring or atelectasis the lingula. Stable 7 mm left basilar pulmonary nodule (axial image 110). Stable probable chronic scarring at the right lung base. Images through the upper abdomen reveal no abnormalities. Impression: Stable 7 mm left basilar pulmonary nodule, benign given the time interval. Probable chronic scarring at the right lung base. Reviewed, dictated and finalized at [facility]. Impression: Stable 7 mm left basilar pulmonary nodule, benign given the time interval. Probable chronic scarring at the right lung base.
== END 2025-02-25 13:01 | disposition home or self-care (01) ==
PROVIDERS: PCP Family Medicine Adolescent Medicine; Visit Provider Family Medicine Adolescent Medicine
DX: R91.1 Solitary pulmonary nodule (principal)
CPT/HCPCS: 71250